=== PATIENT | male | born 1960 | race Caucasian/White ===

== ENCOUNTER 2024-09-29 16:43 | Outpatient (CLI) | payer MEDICARE, OTHER, SELFPAY | END 2024-09-29 16:44 | disposition home or self-care (01) | PROVIDERS: Visit Provider Family Medicine | DX: R41.82 Altered mental status, unspecified (principal); F10.129 Alcohol abuse with intoxication, unspecified | CPT/HCPCS: A0425; A0427 ==

== ENCOUNTER 2025-01-22 19:30 | Outpatient (CLI) | payer MEDICARE, OTHER, SELFPAY | END 2025-01-22 19:31 | disposition home or self-care (01) | LOC: AMB 01-27 18:13 | PROVIDERS: Visit Provider Emergency Medicine | DX: F10.239 Alcohol dependence with withdrawal, unspecified (principal); R11.10 Vomiting, unspecified | CPT/HCPCS: A0425; A0427 ==

== ENCOUNTER 2025-01-22 20:08 | Inpatient (IN) | payer MEDICARE, OTHER, SELFPAY ==
--- OUTSIDE RECORDS SUMMARY | 2022-02-15 05:58 | XMS_ITS | Continuity of Care Document ---
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 Phone Unavailable Unavailable Unavailable Allergies, Adverse Reactions, Alerts Substance Reaction Status Criticality MEPERIDINE HCL Dizziness Active No Informatio n Medications Medication Instructions Dosage Effective Dates (start - stop) Status Comments hydrochlorothiazide 25 mg tablet take 1 tablet by oral route every day 25 MG - Active pantoprazole 40 mg tablet,delayed release take 1 tablet by oral route every morning 40 MG - Active Eliquis 5 mg tablet take 1 tablet by oral route 2 times every day 5 MG - Active METOPROLOL TARTRATE (unknown strength) take 1 tablet by ORAL route 2 times every day Not Available - Active flecainide 100 mg tablet take 1 tablet b y oral route 2 times every hour 100 MG - Active Procedures Procedure Date Small Bowel PillCam Small Bowel PillCam Capsule 1st Day Colonoscopy Flex; W/remov Les- Ugi Endo; W/bx 1/mx Level Iv-surg Path Gross/micro Colonoscopy Flex; W/remov Les- Level Iv-surg Path Gross/micro Colonoscopy Flex; Dx (sep Pro) 11 Advance Directives Directive Yes / No Effective Date File Name No Information Encounters Encounter Description Practice Location Reason(s) For Visit Diagnoses Date Provider Providers Copied on Encounter [facility], [address] [address], [place], [id number], [place] tel:[phone] [facility] No Information 2 No Information Referring Provider: Elan Leonardo, [address], [place], [address]. tel:[phone] [facility], [address] [address], [place], [id number], [place] tel:[phone] [facility] Iron deficiency anemia, unspecified 2 Fredy Bolton. [facility], [address], [id number], [place]. tel:[phone] Referring Provider: Yesy Turner, [address] [place] [address], [address]. tel:[phone] [facility], [address] [address], [place], [id number], [place] tel:[phone] [facility] GI Symptoms or Concerns (chief complaint) Hiatal herniaIron deficiency anemia, unspecified iron deficiency anemia typeColorectal polypsDivertic ulosis of colon without diverticulitis Iron deficiency anemia, unspecifiedPer aimee history of colonic polypsBenign neoplasm of sigmoid colonIron deficiency anemia, unspecifiedDia phragmatic hernia without obstruction or gangreneBenign neoplasm of sigmoid colon 2 Fredy Bolton. [address] [facility], [facility] [address], [place], [id number], [place]. tel:[phone] Referring Provider: Elan Leonardo, [address], [place], [address]. tel:[phone] [facility], [address] [address], [place], [id number], [place] tel:[phone] [facility] No Information 2 Fredy Bolton. [address] [facility], [facility] [address], [place], [id number], [place]. tel:[phone] [facility], [address] [address], [place], [place], [id number], [place] tel:[phone] [facility] Colorectal polypsDivertic ulosis of colonEncounter for screening for malignant neoplasm of colonBenign neoplasm of sigmoid colonEncounter for screening for malignant neoplasm of colonDvrtclos of lg int w/o perforation or abscess w/o bleedingBenign neoplasm of sigmoid colon 0 9 Domingo Barry. [address] [facility] [address], [place], [id number], [place]. tel:[phone] Referring Provider: Yesy Turner, [address] [place] [address], [address]. tel:[phone] [facility], [address] [address], [place], [place], [id number], [place] tel:[phone] [facility] Colon Cancer ScreeningDiver ticulosis Of Colon 1 Tequila Harry. [address] [facility], [facility] [address], [place], [id number], [place]. tel:[phone] Referring Provider: Yesy Turner, [address] [place] [address], [address]. tel:[phone] Family History Family Member Type Diagnosis Age At Onset Mother Problem (finding) Alive and well Father Problem (finding) Son Problem (finding) Alive and well Brother Problem (finding) Alive and well Father Problem (finding) Alcoholism Sister Problem (finding) Alive and well Immunizations Vaccine Date Status Comments SARS-COV-2 (COVID-19) vaccin e, mRNA, spike protein, LNP, preservative free, 30 mcg/0.3mL dose administered Note: [facility] bi-direct ional interface ; Source: Other Registry SARS-COV-2 (COVID-19) vaccin e, mRNA, spike protein, LNP, preservative free, 30 mcg/0.3mL dose administered Note: [facility] bi-direct ional interface ; Source: Other Registry tetanus toxoid, reduced diphtheria toxoid, and acellular pertussis vaccine, adsorbed administered Note: [facility] b i-directional interface ; Source: Other Registry Afluria Qd administered Note: [facility] bi-directional interface ; Source: Other Registry Afluria Qd administered Note: [facility] bi-directional interface ; Source: Other Registry tetanus toxoid, reduced diphtheria toxoid, and acellular pertussis vaccine, adsorbed administered Note: [facility] b i-directional interface ; Source: Other Registry Influenza, seasonal, injectable administe red Note: [facility] bi- directional interface ; Source: Other Registry Payers Payer name Insurance type Covered green party ID Authoriza tion(s) No Information Social History Type Description Quantity Date Captured Comments Alcohol Use Details Unknown Caffeine Use Details Unknown Tobacco Use Status No Information Smoking Status No Information Sex Male Chief Complaint And Reason For Visit No Information Reason For Referral Reason For Referral No Information Plan Of Treatment Date Type Action Status Referral Ordered: Small Bowel PillCam Appointment date/timeframe: First Available ordered History Of Present Illness Encounter Date Complaint History Of Prese nt Illness GI Symptoms or Concerns Functional Status Date Functional Assessmen t No Information Instructions Date Instruction Additional Infor mation Hiatal Hernia Related to Hiata l hernia Colon Cancer Prevention Related to Hiatal hernia Colon Polyps Related to Hiata l hernia Diverticulosis/Diverticulitis Re lated to Hiatal hernia high fiber diet Related to Hiata l hernia Diverticulosis/Diverticulitis Re lated to Colorectal polyps Colon Polyps Related to Color ectal polyps Colon Cancer Prevention Related to Colorectal polyps High Fiber Diet Related to Color ectal polyps Assessments Type Assessment Date No Information Patient Care Teams Name Effective Dates (start - stop) Status Members No Information
--- OUTSIDE RECORDS SUMMARY | 2022-02-15 05:58 | XMS_ITS | Continuity of Care Document ---
Author Organization [facility] Address [address] [address] [place] [address] Phone Care Team Providers Care Manager Adult Name Role Phone Unavailable Unavailable Unavailable Allergies, [...] Diagnoses Date Provider Providers Copied on Encounter [facility], [address] [address], [place], [id number], [place] tel:[phone] [facility] No Information 2 No Information Referring Provider: Elan Leonardo, [address], [place], [address]. tel:[phone] [facility], [address] [address], [place], [id number], [place] tel:[phone] [facility] Iron deficiency anemia, unspecified 2 Fredy Bolton. [facility], [address], [id number], [place]. tel:[phone] Referring Provider: Yesy Turner, [address] [place] [address], [address]. tel:[phone] [facility], [address] [address], [place], [id number], [place] tel:[phone] [facility] GI Symptoms or Concerns (chief complaint) Hiatal herniaIron deficiency anemia, unspecified iron deficiency anemia typeColorectal polypsDivertic ulosis of colon without diverticulitis Iron deficiency anemia, unspecifiedPer aimee history of colonic polypsBenign neoplasm of sigmoid colonIron deficiency anemia, unspecifiedDia phragmatic hernia without obstruction or gangreneBenign neoplasm of sigmoid colon 2 Fredy Bolton. [address] [facility], [facility] [address], [place], [id number], [place]. tel:[phone] Referring Provider: Elan Leonardo, [address], [place], [address]. tel:[phone] [facility], [address] [address], [place], [id number], [place] tel:[phone] [facility] No Information 2 Fredy Bolton. [address] [facility], [facility] [address], [place], [id number], [place]. tel:[phone] [facility], [address] [address], [place], [place], [id number], [place] tel:[phone] [facility] Colorectal polypsDivertic ulosis of colonEncounter for screening for malignant neoplasm of colonBenign neoplasm of sigmoid colonEncounter for screening for malignant neoplasm of colonDvrtclos of lg int w/o perforation or abscess w/o bleedingBenign neoplasm of sigmoid colon 0 9 Domingo Barry. [address] [facility] [address], [place], [id number], [place]. tel:[phone] Referring Provider: Yesy Turner, [address] [place] [address], [address]. tel:[phone] [facility], [address] [address], [place], [place], [id number], [place] tel:[phone] [facility] Colon Cancer ScreeningDiver ticulosis Of Colon 1 Tequila Harry. [address] [facility], [facility] [address], [place], [id number], [place]. tel:[phone] Referring Provider: Yesy Turner, [address] [place] [address], [address]. tel:[phone] Family History Family Member Type Diagnosis Age [...]
[2025-01-22] VITALS (23 sets, daily range): BP systolic 103–141; BP diastolic 74–123; PULSE 103–138; RESP 17–37; TEMP 36.9–37.2; O2SAT 86–98; BMI 32.5
--- NOTE | 2025-01-22 20:10 | ED.GENADULT ---
HPI - General Adult General Date Seen: 01/22/25 Chief complaint: Alcohol/Intoxication Stated complaint: alcohol withdraw Time Seen by Provider: 01/22/25 20:10 History of Present Illness HPI narrative: 64-year-old male brought to the ER today by EMS from his home, near [facility]. His family called 911 for him with concern for alcohol withdrawal. He does not really know his past medical history but he does have a history atrial fibrillation. He knows that he is on flecainide and Eliquis. He confirms that he has been taking his prescription meds today and lately and has missed any recent doses. He does not really know his other medical history. He is able to tell me that he has been drinking heavily, a 5th of whiskey, every day for least a month. He is not sure why he relapse. He has been through alcohol treatment for 5 times in the past. He has never had any serious withdrawal before, he says. Most recent treatment was at [facility] in [place] a couple of years ago. His last drink was yesterday evening around 8 or 9:00 p.m.. When he woke up this morning he decided that he would need to quit drinking so he has not had any alcohol today. Through the morning and afternoon he has felt worse with nausea, shakiness, tremor, anxiety, headache. He vomited once. His reported a paramedics that his emesis was black. He denies any other vomiting. No black or bloody stools lately. Patient denies any pain. No chest pain. No abdominal pain. No back pain. No headache. He has a history of paroxysmal AFib in usually can feel when he is in AFib. On his monitor today we do see that he is in atrial fibrillation and flutter with rapid ventricular response. He is not having any of his typical palpitations. He is not sure when he would have gone into it. Paramedics report report that he was quite nauseous and anxious. They gave him IM droperidol because he was very difficult to get IV on. He had dystonia from that. They were subsequently lose dilation IV in the give him some Benadryl. Blood pressure was hypertensive when paramedics 1st arrived but is now down to about 135/80. He remains tachycardic with heart rate in the 130s-150s. He is tremulous. History from [facility] care link includes: Hypertension aortic root dilatation Paroxysmal AFib Hypertriglyceridemia Obesity Umbilical hernia right inguinal hernia Hiatal hernia Hepatic steatosis Esophageal ulcers with bleeding Alcohol abuse Anxiety disorder Erectile dysfunction Medication list from [facility] link includes: Acetaminophen Apixaban Vitamin-C Ferrous sulfate flecainide 100 mg q.12 hours [id number] mg daily metoprolol succinate 25 mg daily Multivitamin Protonix 40 mg daily Sildenafil Related Data Home Medications ?Medication ?Instructions ?Recorded ?Confirmed apixaban 5 mg tablet (Eliquis) 5 mg PO BID 01/22/25 01/22/25 flecainide 100 mg tablet 100 mg PO Q12H 01/22/25 01/22/25 hydrochlorothiazide 25 mg tablet 25 mg PO DAILY 01/22/25 01/22/25 metoprolol succinate 25 mg 12.5 mg PO DAILY 01/22/25 01/22/25 tablet,extended release 24 hr pantoprazole 40 mg tablet,delayed 40 mg PO DAILY 01/22/25 01/22/25 release Allergies Allergy/AdvReac Type Severity Reaction Status Date / Time meperidine Allergy Unknown Verified 01/22/25 22:12 [facility] Medical History (Updated 01/22/25 @ 22:56 by Ray Elliott MD) Obesity (BMI 30.0-34.9) ?E66.811 - Obesity, class 1 (ICD-10) Esophageal ulcer ?K22.10 - Ulcer of esophagus without bleeding (ICD-10) Tubular adenoma ?D36.9 - Benign neoplasm, unspecified site (ICD-10) Iron deficiency anemia ?D50.9 - Iron deficiency anemia, unspecified (ICD-10) Thrombocytopenia ?D69.6 - Thrombocytopenia, unspecified (ICD-10) Alcoholic steatohepatitis ?K70.10 - Alcoholic hepatitis without ascites (ICD-10) Alcohol use disorder ?F10.90 - Alcohol use, unspecified, uncomplicated (ICD-10) Surgical History (Updated 01/22/25 @ 22:50 by Ray Elliott MD) History of esophagogastroduodenoscopy (EGD) ?Z98.890 - Other specified postprocedural states (ICD-10) History of colonoscopy ?Z98.890 - Other specified postprocedural states (ICD-10) History of umbilical hernia repair ?Z98.890 - Other specified postprocedural states (ICD-10) ?Z87.19 - Personal history of other diseases of the digestive system (ICD-10) History of inguinal hernia repair ?Z98.890 - Other specified postprocedural states (ICD-10) ?Z87.19 - Personal history of other diseases of the digestive system (ICD-10) Family History (Updated 01/22/25 @ 22:50 by Ray Elliott MD) Father Alcohol dependence Social History (Updated 01/22/25 @ 22:52 by Ray Elliott MD) Narrative: He lives with his and son in [place]. His , Carin, is healthcare power of commercial real estate attorney. Code status is full. 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 He drinks alcohol fairly heavily, a 5th of whiskey per day, he is a former smoker Smoking Status: Former smoker Do you use any of these nicotine containing products: None How often do you have a drink containing alcohol: 4 or more times a week How many standard drinks containing alcohol do you have on a typical day: 10 or more How often do you have six or more drinks on one occasion: Daily or almost daily AUDIT-C Alcohol total score: 12 Non-prescribed substance use: denies use Exam Narrative: Exam Narrative: Constitutional: Appears well-developed and well-nourished. Alert. He is quite tremulous but is able to answer simple questions. Not able to provide full details of his history. He can not remember all of his medical problems or his med list. He is quite tremulous. HENT: Head: Atraumatic. Nose: Nose normal. Mouth/Throat: Oral mucosa is clear but mucous membranes are dry. no trismus. Pharynx normal. Tonsils symmetric. No tonsillar enlargement, erythema, or exudate. Eyes: Conjunctivae normal. EOM normal. Pupils equal, round, and reactive to light. No scleral icterus. Neck: Normal range of motion. Neck supple. No tracheal deviation present. No JVD Cardiovascular: Tachycardic and irregularly rhythm. No gallop. No friction rub. No murmur heard. Symmetric radial artery pulses Pulmonary/Chest: Effort normal. No stridor. No respiratory distress. No wheezes. No rales. No rhonchi . No tenderness. Abdominal: Soft. Bowel sounds normal. No distension. No mass. No HSM. No tenderness. No rebound. No guarding. Musculoskeletal: RUE: Normal range of motion. No tenderness. No deformity LUE: Normal range of motion. No tenderness. No deformity RLE: Normal range of motion. No edema. No tenderness. No deformity LLE: Normal range of motion. No edema. No tenderness. No deformity Neurological: Alert and oriented to person, place, and time. Normal strength. CN II-VII intact. No sensory deficit. GCS eye subscore is 4. GCS verbal subscore is 5. GCS motor subscore is 6. Normal coordination Skin: Skin is warm and dry. No rash noted. No pallor. Normal capillary refill. Psychiatric: Endorses heavy alcohol use every day for about a month or so. Decided need to quit drinking today so last drink was about 24 hours ago, 8 or 9:00 p.m. last night. He is having tremor, headache, nausea, vomiting, anxiety. No supported seizures. No hallucinations. Const: Vital Signs, click to edit/add: Vital Signs - 24 hr 01/22/25 20:14 01/22/25 20:20 01/22/25 20:29 Temperature 99 F 99 F Pulse Rate Pulse Rate [Pulse Oximeter] 133 H 126 H Respiratory Rate 20 31 H 18 Blood Pressure Blood Pressure [Le ft Arm] 103/74 Blood Pressure [Ri ght Upper Arm] 135/88 Pulse Oximetry 92 94 92 Oxygen Delivery Me thod Room Air Nasal Cannula Oxygen Flow Rate 2 01/22/25 20:30 01/22/25 20:31 01/22/25 20:32 Temperature Pulse Rate 116 H 120 H 123 H Pulse Rate [Pulse Oximeter] Respiratory Rate 33 H 36 H 28 H Blood Pressure 115/81 116/87 Blood Pressure [Le ft Arm] Blood Pressure [Ri ght Upper Arm] Pulse Oximetry 94 91 91 Oxygen Delivery Me thod Oxygen Flow Rate 01/22/25 20:45 01/22/25 20:47 01/22/25 20:56 Temperature Pulse Rate 123 H 114 H Pulse Rate [Pulse Oximeter] Respiratory Rate 25 H 35 H 29 H Blood Pressure 119/84 103/74 Blood Pressure [Le ft Arm] Blood Pressure [Ri ght Upper Arm] Pulse Oximetry 92 86 L 93 Oxygen Delivery Me thod Nasal Cannula Oxygen Flow Rate 2 01/22/25 21:00 01/22/25 21:02 01/22/25 21:03 Temperature Pulse Rate 110 H 112 H 113 H Pulse Rate [Pulse Oximeter] Respiratory Rate 32 H 37 H 34 H Blood Pressure 111/74 Blood Pressure [Le ft Arm] Blood Pressure [Ri ght Upper Arm] Pulse Oximetry 91 93 92 Oxygen Delivery Me thod Nasal Cannula Nasal Cannula Oxygen Flow Rate 2 2 01/22/25 21:12 01/22/25 21:15 01/22/25 21:17 Temperature Pulse Rate 116 H 109 H Pulse Rate [Pulse Oximeter] Respiratory Rate 28 H 21 Blood Pressure 125/87 Blood Pressure [Le ft Arm] Blood Pressure [Ri ght Upper Arm] Pulse Oximetry 94 95 94 Oxygen Delivery Me thod Nasal Cannula Oxygen Flow Rate 2 01/22/25 21:30 01/22/25 21:32 01/22/25 21:45 Temperature Pulse Rate 104 H 111 H 117 H Pulse Rate [Pulse Oximeter] Respiratory Rate 29 H 29 H 25 H Blood Pressure 117/77 Blood Pressure [Le ft Arm] Blood Pressure [Ri ght Upper Arm] Pulse Oximetry 95 95 96 Oxygen Delivery Me thod Oxygen Flow Rate 01/22/25 22:00 01/22/25 22:02 01/22/25 22:15 Temperature Pulse Rate 118 H 123 H 131 H Pulse Rate [Pulse Oximeter] Respiratory Rate 23 21 17 Blood Pressure 119/82 Blood Pressure [Le ft Arm] Blood Pressure [Ri ght Upper Arm] Pulse Oximetry 98 96 95 Oxygen Delivery Me thod Oxygen Flow Rate Course Course ED Course: Recheck-lactic acid came back elevated at 5.1. At this point I suspect it is probably due to dehydration and alcohol withdrawal rather than sepsis. Could also be type B lactic acidosis from hepatic insufficiency. However we will order a 30 mL/kg bolus of fluids (patient weighs approximately 100 kg so 3000 mL) , blood cultures, and will give a single dose of empiric antibiotics for potential sepsis. Recheck -930. Patient is alert. field technical support consultant present at the side drawing blood for blood cultures. Patient's tremor is dramatically reduced compared to arrival. Heart rate down but still in AFib ranging about 110 up to 130. Nurses have reported that he was quite drowsy after 10 mg of Valium but with me he is able to be alert and conversant. Good cap refill. I note that his repeat vitals had indicate rib tachypnea with a respiratory rate of 37 but by my count now is respiratory rate is 25. He is denying any chest pain or shortness of breath. He is not hypoxic Recheck -930 1. Labs came back with hypokalemia potassium of 2.6 and hypo magnesemia, magnesium is 0.8. Will replete electrolytes. Recheck-discussed with our hospitalist, Dr. Elliott at about 945 and he graciously agreed to admit this patient to critical care for further treatment of his electrolyte imbalances, alcohol withdrawal, AFib with RVR. Sepsis bundle Repeat assessment for perfusion Date exam performed: 01/22 Time exam performed: 2199 Focused Exam: I have reassessed tissue perfusion after bolus given. Skin is pink, warm, well perfused. Mental status is normal. Heart rate remains tachycardic but is improved from the 130-160 range down to about 110-130. Still AFib with RVR. Current stage of sepsis: Sepsis very unlikely. Suspected due to dehydration and alcohol withdrawal . Vital Signs Vital signs: Initial Vital Signs Temperature 99 F 01/22/25 20:14 Temperature Source Temporal Artery Scan 01/22/25 20:14 Pulse Rate 133 H 01/22/25 20:14 Respiratory Rate 20 01/22/25 20:14 Blood Pressure 135/88 01/22/25 20:14 Blood Pressure Mean 103 01/22/25 20:14 Blood Pressure Position Semi-Fowlers 01/22/25 20:14 Pulse Oximetry 92 01/22/25 20:14 Oxygen Delivery Method Room Air 01/22/25 20:14 Vital Signs Temperature 99 F 01/22/25 20:14 Pulse Rate 133 H 01/22/25 20:14 Respiratory Rate 20 01/22/25 20:14 Blood Pressure 135/88 01/22/25 20:14 Pulse Oximetry 92 01/22/25 20:14 Oxygen Delivery Method Room Air 01/22/25 20:14 Temperature 99 F 01/22/25 20:29 Pulse Rate 131 H 01/22/25 22:15 Respiratory Rate 17 01/22/25 22:15 Blood Pressure 119/82 01/22/25 22:02 Pulse Oximetry 95 01/22/25 22:15 Oxygen Delivery Method Nasal Cannula 01/22/25 21:12 Oxygen Flow Rate 2 01/22/25 21:12 Medications Administered Medications: Generic Name Dose Route Start Last Admin Trade Name Robertq PRN Reason Stop Dose Admin Magnesium Sulfate 2 gm in 50 mls @ 25 mls/hr 01/22/25 22:49 01/22/25 23:08 Magnesium Iv IVPB 01/23/25 00:48 25 mls/hr ONCE ONE Administration Metoprolol Succinate 25 mg 01/22/25 22:49 01/22/25 23:11 Metoprolol Succinate (Xl) 25 Mg Tab PO 25 mg BID FRANCESAC Administration Sodium Chloride 250 ml 01/22/25 23:15 01/22/25 23:10 0.9 % Sodium Chloride 250 Ml IV 250 ml Q24H FRANCESCA Administration Thiamine HCl 100 mg 01/22/25 22:49 01/22/25 23:12 Thiamine 100 Mg Tablet PO 01/24/25 22:50 100 mg Q24H FRANCESCA Administration Discontinued Medications Generic Name Dose Route Start Last Admin Trade Name Robertq PRN Reason Stop Dose Admin Diazepam 20 mg 01/22/25 20:28 01/22/25 21:10 Diazepam 5 Mg/Ml Inj IV 01/22/25 20:29 10 mg ONCE ONE Administration Sodium Chloride 1,000 mls @ 1,000 mls/hr 01/22/25 20:30 01/22/25 21:46 0.9 % Sodium Chloride 1000 Ml IV 01/22/25 21:29 Infused .Q1H FRANCESCA Infusion Phenobarbital 260 mg/ Sodium 104 mls @ 208 mls/hr 01/22/25 20:28 01/22/25 21:41 Chloride IVPB 01/22/25 20:29 Infused ONCE ONE Infusion Lactated Ringer's 1,000 mls @ 1,000 mls/hr 01/22/25 21:05 01/22/25 22:07 Lactated Ringers 1000 Ml IV 01/22/25 22:04 Infused .Q1H ONE Infusion Sodium Chloride 1,000 mls @ 1,000 mls/hr 01/22/25 21:15 01/22/25 21:50 0.9 % Sodium Chloride 1000 Ml IV 01/22/25 22:14 1,000 mls/hr .Q1H FRANCESCA Administration Piperacillin Sod/Tazobactam 100 mls @ 200 mls/hr 01/22/25 21:09 01/22/25 22:38 Sod 4.5 gm/ Sodium Chloride IVPB 01/22/25 21:10 Infused ONCE ONE Infusion Potassium Chloride 10 meq in 100 mls @ 100 mls/hr 01/22/25 21:31 01/22/25 23:32 Potassium Chloride IVPB 01/22/25 22:30 Infused ONCE ONE Infusion Magnesium Sulfate 2 gm in 50 mls @ 150 mls/hr 01/22/25 21:32 01/22/25 22:38 Magnesium Iv IVPB 01/22/25 21:51 Infused ONCE ONE Infusion Phenobarbital 260 mg/ Sodium 104 mls @ 208 mls/hr 01/22/25 22:49 01/22/25 23:16 Chloride IVPB 01/22/25 22:50 208 mls/hr ONCE ONE Administration Metoprolol Tartrate 5 mg 01/22/25 22:49 01/22/25 23:08 Metoprolol Tartrate 1 Mg/Ml Inj IVP 01/22/25 22:50 5 mg ONCE ONE Administration Potassium Bicarbonate 25 meq 01/22/25 21:31 01/22/25 22:06 Potassium Bicarb 25 Meq Effervescent Tab PO 01/22/25 21:32 25 meq ONCE ONE Administration Potassium Bicarbonate 50 meq 01/22/25 22:49 01/22/25 23:13 Potassium Bicarb 25 Meq Effervescent Tab PO 01/22/25 22:50 50 meq ONCE ONE Administration Medical Decision Making [facility] Narrative Medical decision making narrative: Renal/electrolytes-BMP shows sodium low at 122. Most recent sodium was September 29 and at that time was 140. Id-patient does not have a fever. No clear infection going on here. White count normal. However lactic acid came back elevated at 5.3 which is concerning, if there is an infection, for Sepsis . I did order blood cultures and empiric dose of antibiotics as well as a 30 mL/kilogram bolus of some crystalloid. Subsequent lactate came back improved down to 3.1. Further monitoring will be continued in the critical care unit. Psych-patient endorses history of alcoholism for many years. Has been through treatment for 5 times. Denies any suicide attempt. Alcohol level undetectable. Salicylate and acetaminophen undetectable. Will need substance abuse and alcohol treatment once patient is medically stable for discharge after alcohol withdrawal. Drug screen is positive for barbiturates it is because he was given phenobarbital as part of his treatment for alcohol withdrawal. Heme-hemoglobin normal. Platelet count is low at 1:03 a.m.. Per [facility] records he did have a CBC in September 2024. At that time white count was 5.3, hemoglobin is 14 4, and platelet count was 186. Thrombocytopenia is new. Renal/electrolytes. BMP shows hyponatremia with a sodium of 125. This is new compared to September. He also has hypokalemia with potassium of 2.6 and hypomagnesemia with a magnesium level of 0.8. Electrolytes are repleting here in the ER with crystalloid boluses, oral and IV potassium, IV magnesium. Liver-patient has abnormal LFTs. 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 Cardiac-patient has a history of paroxysmal AFib. He does have AFib/flutter with rapid ventricular response and initial heart rates ranging in the 130-60 region. At this point we suspect that his tachycardia is likely secondary to dehydration and alcohol withdrawal. Initial treatment is to rehydrate him manage alcohol withdrawal. Will add rate control agents if needed. At this point this is not an ?unstable? tachycardia requiring immediate cardioversion. Patient reports that he has been therapeutic with his Eliquis, even through all of his drinking. Therefore if cardioversion were to become necessary, he would be expected to be low risk for stroke. The patient actually denies any chest pain, palpitations, shortness of breath, or other symptoms directly attributable to his AFib. Pulmonary-patient denies any recent cough or shortness of breath. He did become hypoxic and was pushed on nasal cannula after receiving benzos. Suspect this is a medication side effect as part of his treatment for alcohol withdrawal. Lab Data Labs: Lab Results 01/22/25 01/22/25 01/22/25 Range/Units 20:29 21:45 22:05 WBC 5.14 (4.50-11.00) K/uL RBC 4.40 (4.30-5.90) m/uL Hgb 13.5 (13.5-17.5) gm/dL Hct 37.4 (37.0-53.0) % MCV 85 (80-100) fL MCH 31 (26-34) pg MCHC 36 (32-36) gm/dL RDW Coeff of [place] 15.6 H (11.5-15.5) % Plt Count 103 L (140-440) K/uL Neut % (Auto) 89.1 H (42.0-72.0) % Lymph % (Auto) 5.6 L (20-44) % [place] % (Auto) 4.3 (0.0-11.0) % Eos % (Auto) 0.0 (0.0-7.0) % Baso % (Auto) 0.6 (0.0-3.0) % Neut # (Auto) 4.60 (1.7-7.0) K/uL Lymph # (Auto) 0.30 L (0.90-2.90) K/uL [place] # (Auto) 0.20 (0.00-0.90) K/UL Eos # (Auto) 0.00 (0.00-0.50) K/uL Baso # (Auto) 0.03 (0.00-0.30) K/uL Abs Immat Gran (auto) 0.02 (0.00-0.30) K/uL Imm/Tot Granulo (auto) 0.4 % Sodium 122 L* 125 L (135-149) mmol/L Potassium 2.6 L* (3.6-5.1) mmol/L Chloride 85 L (96-114) mmol/L Carbon Dioxide 22 (20-32) mmol/L Anion Gap 15 (7-15) mEq/L BUN 10 (7-30) mg/dL Creatinine 0.9 (0.5-1.5) mg/dL Estimated Creat Clear 73.65 Estimated GFR 95 ml/min Glucose 134 H (60-115) mg/dL Lactate 5.3 H* 3.1 H (0.5-1.9) mmol/L Calcium 7.4 L (8.4-10.6) mg/dL Magnesium 0.8 L* (1.5-2.6) mg/dL Total Bilirubin 2.5 H (0.1-1.5) mg/dL AST 86 H (12-35) U/L ALT 43 (4-50) U/L Alkaline Phosphatase 107 (40-150) U/L Total Protein 6.7 (6.0-8.3) g/dL Albumin 3.5 (3.3-5.0) g/dL Lipase 298 (23-300) U/L Urine Color Yellow (Yellow) Urine Appearance Clear (Clear) Urine pH 6.5 (5.0-8.5) Ur Specific [place] 1.015 (1.000-1.030) Urine Protein 2+ A (Negative) Urine Glucose (UA) Negative (Negative) Urine Ketones 1+ A (Negative) Urine Blood Trace-intact A (Negative) Urine Nitrite Negative (Negative) Urine Bilirubin Negative (Negative) Urine Urobilinogen 1.0 (0.2-1.0) Ur Leukocyte Esterase Negative (Negative) Urine RBC 0-2 (0-2) Urine WBC 0-2 (0-5) Ur Squamous Epith Cells None (None-Few) Urine Bacteria None (None) Salicylates < 1.0 L (1.0-10) mg/dL Urine Opiates Screen Negative (Negative) Ur Oxycodone Screen Negative (Negative) Urine Methadone Screen Negative (Negative) Acetaminophen < 10.0 (10.0-30.0) ug/mL Ur Barbiturates Screen POSITIVE A (Negative) U Tricyclic Antidepress Negative (Negative) Ur Phencyclidine Scrn Negative (Negative) Ur Amphetamines Screen Negative (Negative) U Methamphetamines Scrn Negative (Negative) U Benzodiazepines Scrn Negative (Negative) Urine Cocaine Screen Negative (Negative) U Marijuana (THC) Screen Negative (Negative) Ur Drug Screen Comment See Note Ethyl Alcohol < 0.01 (0.01-0.03) % ECG Data Attestation: I personally reviewed and interpreted this ECG as follows: Interpretation: Atrial fibrillation with rapid ventricular response Heart rate 131 MN interval not measurable Normal QRS axis. No ST segment elevation or depression. Nonspecific T-wave changes. QT 326, QTC 481 Discharge Plan Discharge Clinical Impression: Alcohol withdrawal syndrome, Atrial fibrillation with RVR, Acute hyponatremia, Hypokalemia, Hypomagnesemia Patient Disposition: Admitted As Inpatient
--- OUTSIDE RECORDS SUMMARY | 2025-01-22 20:11 | XMS_ITS | Clinical Summary ---
Author Organization [facility] Address [address] [place] [address] Care Team Providers Care Veterans' Counselor Name Role Phone Elan Perez MD Primary Care Provider [phone] Allergies Active Allergy Reactions Criticality Noted Date Comments Meperidine Dizziness,Hallucinations Low 05/23/2010 Medications MULTIVITAMIN TAB take 1 tablet by oral route once daily with food 30 0 07/01/19 09 Active ascorbic acid (VITAMIN C) 1,000 mg tablet Take 1 tablet by mouth once daily. 0 07/03/19 12 Active miscellaneous medical supply (BLOOD PRESSURE CUFF) miscIndications: Elevated blood pressure As directed. 1 Units 0 12/12/19 16 Active acetaminophen (TYLENOL) 325 mg tablet Take by mouth every 4 hours if needed. Max acetaminophen dose: 4000mg in 24 hrs. 30 tablet Active flecainide (TAMBOCOR) 100 mg tabletIndication s:Persistent atrial fibrillation (HC) Take 1 Tablet (100 mg) by mouth every 12 hours. And keep upcoming cardiology appt in February. 180 Tablet 3 02/25/20 24 Active apixaban (ELIQUIS) 5 mg tabletIndication s:Anticoagulatio n monitoring, INR range 2-3,Atrial fibrillation, unspecified type (HC) Take 1 Tablet (5 mg) by mouth two times daily. And keep cardiology appt in February 2024. 180 Tablet 3 02/25/20 24 Active metoprolol succinate (TOPROL XL) 25 mg Sustained-Releas e tabletIndication s:Paroxysmal A-fib (HC) Take 0.5 Tablets (12.5 mg) by mouth once daily. Due for cardiology follow up. Please call [phone] to schedule. Last refill. 45 Tablet 3 02/25/20 24 Active ferrous sulfate 325 mg delayed release tabletIndication s:Iron deficiency anemia, unspecified iron deficiency anemia type Take 1 Tablet (325 mg) by mouth once every other day. And recheck iron level, ferritin, in 2-6 months. 45 Tablet 1 03/13/20 24 Active pantoprazole (PROTONIX) 40 mg delayed-release tabletIndication s:Ulcer of esophagus with bleeding TAKE ONE TABLET BY MOUTH ONCE DAILY BEFORE A MEAL. 90 Tablet 10/13/19 25 Active hydroCHLOROthiaz [place] 25 mg tabletIndication s:HTN (hypertension) Take 1 Tablet (25 mg) by mouth once daily. Overdue for cardiology follow up. Please call [phone] to schedule to receive further refills. 90 Tablet 10/13/19 25 Active sildenafil citrate (VIAGRA) 100 mg tabletIndication s:Decreased libido,Erectile dysfunction of organic origin Take 1 Tablet (100 mg) by mouth once daily if needed for Erectile Dysfunction. Take 30min to 4 hours before sexual activity. Max 100mg/24hr. 10 Tablet 11/05/19 25 Active Active Problems Problem Noted Date Diagnosed Date Paroxysmal A-fib 02/24/2024 Overview (02/25/2024): Feb 2024. See cardiology consult. Cont same and f/u one year. Aortic root dilatation 07/20/2021 Overview (01/20/2024): July 2021. Echo 4.2 cm. Jan 2024. Echo 4.2 cm Iron deficiency anemia 07/01/2021 Overview (01/27/2022): Jan 2022. EGD normal, Colonoscopy with adenomas and hyperplastic polyps. Ulcer of esophagus with bleeding 07/01/2021 Alcohol abuse 04/10/2020 HTN (hypertension) 04/10/2020 Inguinal hernia, right 09/11/2018 Hiatal hernia - incidental finding on U/S 08/201809/11/2018 Colon adenoma 07/30/2018 Overview (02/24/2024): 2019. Colonoscopy with [facility], 3 adenomas. Recheck in 2021. 2021. One more adenoma. Recheck in 5 years. Anxiety disorder 01/05/2016 Erectile dysfunction of organic origin 5 Hypertriglyceridemia 06/09/2010 Overview (02/25/2024): Oct 2021. See cardiology consult. CT calcium score zero. Feb 2024. See cardiology consult. No need for statin. Umbilical hernia Obesity (BMI 30.0-34.9) Hepatic steatosis - incidental finding on U/S 2018 Resolved Problems Problem Noted Date Diagnosed Date Resolved Date Atrial fibrillation, unspecified type 10/24/2023 01/07/2024 Anticoagulation monitoring, INR range 2-3 10/24/2023 01/20/2024 Overview (01/07/2024): Oct 2021. See cardiology consult. RX for metoprolol changed/decreased. Cont anticoagulation. Cont with flecainide. Sinus bradycardia 07/01/2021 11/02/2021 Systemic inflammatory respon se syndrome (SIRS) due to non-infectious process without acute organ dysfunction 04/11/2020 02/24/2024 Acute hyponatremia 04/11/2020 GIB (gastrointestinal bleeding) 04/10/2020 04/26/2020 Acute blood loss anemia 04/10/2020 02/0 11/2020 Atrial fibrillation 04/10/2020 01/20/20 Overview (11/02/2021): June 2021. Extended holtor revealed 10% burden of paroxysmal Afib/flutter. No pauses. Oct 2021. See cardiology consult. RX for metoprolol changed/decreased. Cont anticoagulation. Cont with flecainide. Chronic anticoagulation 04/10/202012/17 Overview (11/02/2021): Oct 2021. See cardiology consult. RX for metoprolol changed/decreased. Cont anticoagulation. Cont with flecainide. Tubular adenoma of colon - next due 202107/25/2018 02/24/2024 Alcohol dependence in remission 01/05/2016 04/26/2020 Dysthymic disorder 01/18/2011 2 Other and unspecified alcoho l dependence, unspecified drinking behavior 01/18/2011 02/06/2012 Partner relationship problem 01/18/2011 02/06/2012 Diverticular disease of colon 08/02/2010 09/11/2018 Paroxysmal atrial fibrillation 07/03/2010 07/05/2010 Hyponatremia 05/27/2010 07/05/2010 Alcohol withdrawal syndrome 05/27/2010 07/05/2010 Alcohol abuse 05/24/2010 02/06/2012 Acute alcohol intoxication 05/24/2010 0 07/05/2010 High triglycerides 1 Recurrent sinusitis 09/12/19 19 Hypertension 07/05/2010 History of alcohol abuse Encounters Date Type Department Care Team Description 11/02/2024 Refill [facility] [address] [place] [address] Elan Perez MD Refill Request (Viagra) from Last 3 Months Immunizations Immunization Administration Dates Next Due COVID-19 vaccine ([employer] 30mcg/0.3mL) GERA Gamino 07/11/2020,06/20/2020 Influenza A (H1N1), Inactivated (Age >=3 Years) 12/30/2009 Influenza, IIV3 (Age >=3 years) 02/06/2012,02/15 Influenza, IIV4 12/23/2018,03/26/2016 Influenza, Inactivated IIV3 (Age 65+ Years) Preserv Free 02/24/2024 Pneumococcal Conj 20-valent (Prevnar 20) 024 Tdap 12/23/2018,06/30/2008 Family History Medical History Relation Name Comments Alcohol/Drug Father Diabetes Maternal Uncle Diabetes Other Mother Hypoglycemia Thyroid Disease Sister 2 1/2 sister Cancer Sister 3 Cervical Relation Name Status Comments Brother Alive healthy Father (Age 74) lung cance r Maternal Uncle Mother Alive Heart medicatio n, coumadin, depression Sister 1 Alive thyroid and cer vical cancer Sister 2 Sister 3 Son Alive 5 sons. all hea lthy Social History Tobacco Use Types Packs/Day Years Used Date Smoking Tobacco: Former Cigarettes Q uit: 12/06/2010 Smokeless Tobacco: Never Tobacco Cessation:Counseling Given: Not Answered Alcohol Use Standard Drinks/Week Comments Not Currently 0 (1 standard drink = 0.6 oz pur e alcohol) quit 2022 PHQ-2 Answer Date Recorded PHQ-2 TOTAL SCORE 0 02/24/2024 Social Connections Answer Date Recorded Do you often feel lonely or isolated from those around you? 0 03/13/2024 Financial Resource Strain Answer Date R ecorded Difficulty of Paying Living Expenses 3 10/17/2023 Difficulty of Paying Living Expenses Not on file 10/17/2023 Food Insecurity Answer Date Recorded Do you worry your food will run out before you are able to buy more? 1 03/13/2024 Transportation Needs Answer Date Record ed Does lack of transportation keep you from medica l appointments? 1 03/13/2024 Does lack of transportation keep you from work, meetings or getting things that you need? 1 03/13/2024 Housing Stability Answer Date Recorded What is your housing situation today? 1 03/13/2024 Interpersonal Safety Answer Date Record ed Are you being hit, kicked, p ushed or yelled at (see row info)? No 09/29/2024 Interpersonal Safety Abuse 12 - 18 Not on file 09/29/2024 Interpersonal Safety Ambulatory Vulnerability No t on file 09/29/2024 Utilities Answer Date Recorded Do you have trouble paying f or utilities (for example, heat, electricity, water, phone)? 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 Gender Identity Not on file Sexual Orientation Not on file Obstetrics History Last Filed Vital Signs Vital Sign Reading Time Taken Comments Blood Pressure 139/72 09/30/2024 7:55 AM CDT Pulse 97 09/30/2024 7:55 AM CDT Temperature 36.4 C (97.6 F) 09/30/2024 7:10 AM CDT Respiratory Rate 14 09/30/2024 7:55 AM CDT Oxygen Saturation 96% 09/30/2024 7:55 AM CDT Inhaled Oxygen Concentration - - Weight 99.8 kg (220 lb) 09/29/2024 5:47 PM CDT Height 172.7 cm (5' 8) 09/29/2024 5:47 PM CDT Body Mass Index 33.45 09/29/2024 5:47 PM CDT Plan of Treatment Health Maintenance Due Date Last Done Comments HIV for age 15-65 1974 Hepatitis C screening for age 18-79 1977 Zoster (shingles) series for age 50+ (1 of 2) 2009 RSV vaccine for adults or (1 - Risk 60-74 years 1-dose series) 2019 AAA screening age 65-74 02/03/2024 09/11/2018 Influenza Vaccine (#1) 2024 , 12/23/2018, 03/26/2016, Additional history exists BMI (ht and wt on same day) for age 18+ 02/24/2025 02/25/2024, 02/24/2024, 02/11/2024, Additional history exists Depression screening for age 12+ 02/24/2025 02/25/2024, 02/25/2024, 02/24/2024, Additional history exists Medicare Wellness for age 65+ 02/24/2025 02/24/2024 Colonoscopy through age 75 01/23/202701/23, 07/25/2018, 07/31/2010 Tetanus booster 12/23/2028 12/23/2018, 06/30/2008 Lipids for age 45-75 02/24/2029 02/25/2024, 10/31/2021, 06/30/2021, Additional history exists Pneumococcal series for age 50+ Completed 02/24/2024 Hepatitis B series for 19+ Aged Out N o longer eligible based on patient's age to complete this topic Medical Devices Implanted Type Area [employer] Packaging Machine Operator Device Identifier Shelf Expiration Date Model / Serial / Lot Mesh Inguinal Rt 4x6in 3-D Max - [id number] Implanted:Qty: 1 on 12/31/2018 by Sy Wan MD at [facility] Right: Inguinal [employer] 08/13/2023 [id number] / / [id number] Procedures Procedure Name Priority Date/Time Associated Diagnosis Comments LIPID PANEL W REFLEX MEASURED LDL Today 02/25/2024 9:40 AM [employer]ARD SPECIALIST Hypertriglyceridemi a SCAN-COLONOSCOPY 01/23/2022 2:[address] ABDOMEN PELVIS W Routine 09/11/2018 8 :15 AM CDT Inguinal pain, right from Last 3 Months or Most Recently Relevant to Health Maintenance Results * (ABNORMAL) LIPID PANEL W REFLEX MEASURED LDL (02/25/2024 9:40 AM YARD SPECIALIST) CHOLESTEROL,TOTAL 171 100 - 199 mg/dL 02/25/2024 10:15 AM YARD SPECIALIST [facility] Comment: Cholesterol, Total Reference Ranges Desirable <200 mg/dL Borderline 200-239 mg/dL High >=240 mg/dL TRIGLYCERIDES 263(H) <150 mg/dL 02/25/2024 10:15 AM YARD SPECIALIST [facility] HDL CHOLESTEROL 32(L) >40 mg/dL 10:15 AM YARD SPECIALIST [facility] NON-HDL CHOLESTEROL 139 <145 mg/dl 02/25/2024 10:15 AM YARD SPECIALIST [facility] CHOL/HDL RATIO 5.34(H) <4.50 02/25/2024 10:15 AM YARD SPECIALIST [facility] LDL CHOLESTEROL 86 <=130 mg/dL 02/25/2024 10:15 AM YARD SPECIALIST [facility] VLDL CHOLESTEROL 53(H) <=30 mg/dL 02/25/2024 10:15 AM [facility] PROVIDER ORDERED STATUS FASTING 02/25/2024 10:15 AM [facility] Blood BLOOD SPECIMEN / Unknown Venipuncture / Unknown 02/25/2024 9:40 AM YARD SPECIALIST 02/25/2024 9:43 AM YARD SPECIALIST us Elan Perez MD CHEMISTRY Final Result [facility] [address] [place] [address] * SCAN-COLONOSCOPY (01/23/2022 2:30 PM YARD SPECIALIST) Narrative Procedure Note Ham Daniel MD - 01/23/2022 1:54 PM CST [facility] [address], [address], [place] [address] Patient Name: Larry Lim Gender: Male Exam Date: 01/23/2022 Visit Number: [id number] Age: 61 Years Date of : 1960 Attending MD: Hoang Daniel MD Medical Record#: [id number] Procedure: Colonoscopy Indications: Previous adenomatous polyp(s) Iron deficiency anemia Referring MD: Elan Perez MD Primary MD: Elan Perez MD Medications: Admitting Medications: Lactated Ringers Intra Procedure Medications: Patient received monitored anesthesia care. Complications: No immediate complications Procedure: An examination of the heart and lungs was performed and found to be withinacceptable limits. . The patient was therefore deemed a reasonablecandidate for endoscopy and sedation. The risks and benefits of the procedure were explained to the patient.After obtaining informed consent, the patient received monitoredanesthesia care and I passed the scope without difficulty via the rectum to the ileum. The appendiceal orificeand ic valve were identified. The scope was retroflexed during theexamination The quality of the prep was excellent (Alok/Gat Split). This was a complete examination throughout the entire colon. Findings: Polyp location: sigmoid. Quantity: 2. Size: 4-5 mm. Polyp shape:sessile. Maneuver: polypectomy was performed with a cold snare. Removal: complete. Retrieval: complete. Bleeding: none. Polyp location: rectum. Quantity: 3. Size: 4-5 mm. Polyp shape:sessile. Maneuver: polypectomy was performed with a cold snare . Removal: complete. Retrieval: complete. Bleeding: none. All polyps in same jar. Diverticulosis. Location: - transverse colon. Size: large.Quantity: few. Impression: Colorectal polyps Diverticulosis of colon without diverticulitis Iron deficiency anemia, unspecified iron deficiency anemia type Preliminary Plan: The patient and their physician will receive a copy of the pathologyreport as well as pathology-based recommendations for future screening orsurveillance. Antiplatelets/Anticoagulants: Apixaban (Eliquis). Last dose: 3 days ago. Restart. Date: 01/24/2022 Recommendation Comments: High fiber diet. Procedure: Upper GI Endoscopy Indications: Ulcer, follow up, Esophageal Iron Deficiency Anemia Provider: Hoang Daniel MD Referring MD: Elan Perez MD Primary MD: Elan Perez MD Medications: Admitting Medication: Lactated Ringers Intra Procedure Medications: Patient received monitored anesthesia care. Complications: No immediate complications Procedure: An examination of the heart and lungs was performed within acceptablelimits. . The patient was therefore deemed a reasonable candidate forsedation. The risks and benefits were explained to the patient, who appeared tounderstand. After obtaining informed consent, the scope was passed underdirect vision. Throughout the procedure the patient's blood pressure,pulse and oxygen saturations were monitored. The scope was introducedthrough the mouth and advanced to the second portion of duodenum. Findings: Esophagus: Normal esophagus. The z-line is 41 centimeters from the incisors. Stomach: Normal Location: entire stomach Maneuver: biopsies were obtained cold biopsy forceps Small Hiatal Hernia. *Stomach Comments: No stricture seen. Duodenum: Normal duodenum. Celiac Sprue biopsies taken. Celiac Sprue biopsies taken. Impression: Hiatal hernia Iron deficiency anemia, unspecified iron deficiency anemia type Preliminary Plan: Antiplatelets/Anticoagulants: Apixaban (Eliquis). Last dose: 3 days ago. Restart. Date: 01/24/2022 Recommendation Comments: No reason for iron deficiency anemia seen. Ifbiopsies normal, would do small bowel pill camera study. Pathology Results: A: DUODENUM, BIOPSY: 1. Normal duodenal mucosa 2. Negative for celiac disease and other enteropathy B: STOMACH, BIOPSY: 1. Normal gastric body mucosa 2. Negative for Helicobacter C: COLON, SIGMOID AND RECTUM, POLYPS: 1. Tubular adenoma (1) and hyperplastic polyps (4) 2. Negative for high grade dysplasia 3. Per the colonoscopy report: a. Polyp sizes: 4 mm - 5 mm b. Resection: Complete c. Retrieval: Complete MICROSCOPIC A: Performed B: Performed C: Performed Electronically signed by: Golden Bonilla MD Interpreted at [facility], [address] [place], [place] [id number] Orders Office Procedures: Service Comments Timeframe Assessment Small Bowel PillCam First Available D50.9 Instruction(s)/Education: Instruction/Education Timeframe Assessment Colon Cancer Prevention K44.9 Colon Polyps K44.9 Diverticulosis/Diverticulitis K44.9 Hiatal Hernia K44.9 high fiber diet K44.9 Final Plan: Repeat colonoscopy in 5 years. We will attempt to contact you at appropriate intervals via U.S. mail. Wemay not be able to find you or contact you at that time, therefore youshould know that the responsibility for following our recommendation restswith you. If you don't hear from us at the time your procedure is due,please contact our office to schedule an appointment. If your contactinformation should change, please contact our office so that we can updateyour record. Additional Comments: Will schedule a small bowel pill camera study. _Electronically signed by: Hoang Daniel MD 01/23/2022 cc: Elan Perez MD cc: Elan Perez MD us Ham Daniel MD OTHER Final Resu lt * CT ABDOMEN PELVIS W (09/11/2018 8:15 AM CDT) Anatomical Region Laterality Modality Abdomen, Pelvis, AORTA, LIVER, SPLEEN Computed Tomography 09/11/2018 8:40 AM CDT Narrative 09/11/2018 8:40 AM CDT INDICATION: Groin pain on right side. Possible inguinal hernia. TECHNIQUE: CT abdomen and pelvis acquired with i.v. 100 mL Omnipaque 300. Coronal and sagittal reformats were obtained. Oral contrast: Water 24 ounces COMPARISON: None FINDINGS: Cardroom Drawing Runner CT images: Nonobstructive bowel gas pattern. Moderate to severe degenerative disc disease at L5-S1 with grade 1 anterolisthesis of L5 on S1. Lower chest: Imaged lung bases are clear. No pleural or pericardial effusions. Liver: Low-attenuation to liver parenchyma, suggesting fatty infiltration. Liver capsule smoothly marginated. No focal liver lesion. Spleen: Unremarkable. Pancreas: Unremarkable. Gallbladder and bile ducts: Unremarkable. Kidneys: Unremarkable. No kidney or ureteral stones and no hydronephrosis seen. Adrenal glands: Unremarkable. GI tract: Small hiatal hernia. Subjective thickening of the distal esophagus, possible sequela from chronic reflux esophagitis. Stomach and duodenum otherwise unremarkable. Duodenum crosses midline. Loops of small bowel normal in caliber. Normal caliber appendix well visualized in the right lower quadrant. Appendicolith noted, series 3, image 164. Large bowel normal in caliber. No abnormal colonic wall thickening, interloop ascites, or mesenteric fat stranding. Vascular: Unremarkable. Lymph nodes: Unremarkable. Miscellaneous: Fat containing right inguinal hernia defect, with hernia neck well-visualized on series 5, image 102, measuring 1.6 cm. Small fat containing umbilical hernia defect. Pelvic Organs: Prostate gland enlarged. Bladder wall unremarkable. No enlarged inguinal or pelvic sidewall lymph nodes. No free fluid. Bones: Bilateral L5 pars defects. Severe degenerative disc disease at L5-S1 grade 1 anterolisthesis of L5 on S1. IMPRESSION: 1. Right inguinal fat containing hernia defect with hernia neck estimated at 1.6 cm, series 5, image 102. 2. Small fat containing umbilical hernia defect. 3. Hepatic steatosis. 4. Small hiatal hernia with possible sequela of chronic reflux esophagitis. Consider correlation with nonemergent esophagram. 5. Appendicolith with no imaging evidence of acute appendicitis. 6. Bilateral L5 pars defects with grade 1 anterolisthesis of L5 on S1. Please note that all CT scans at this facility use dose modulation, iterative reconstruction, and/or weight-based dosing when appropriate to reduce radiation dose to as low as reasonably achievable. Dictated by Jg Amin MD @ Sep 11 2018 8:40AM (Electronically Signed) Procedure Note Jg Amin MD - 09/11/2018 INDICATION: Groin pain on right side. Possible inguinal hernia. TECHNIQUE: CT abdomen and pelvis acquired with i.v. 100 mL Omnipaque 300. Coronal andsagittal reformats were obtained. Oral contrast: Water 24 ounces COMPARISON: None FINDINGS: Cardroom Drawing Runner CT images: Nonobstructive bowel gas pattern. Moderate to severedegenerative disc disease at L5-S1 with grade 1 anterolisthesis of L5 onS1. Lower chest: Imaged lung bases are clear. No pleural or pericardialeffusions. Liver: Low-attenuation to liver parenchyma, suggesting fatty infiltration.Liver capsule smoothly marginated. No focal liver lesion. Spleen: Unremarkable. Pancreas: Unremarkable. Gallbladder and bile ducts: Unremarkable. Kidneys: Unremarkable. No kidney or ureteral stones and no hydronephrosisseen. Adrenal glands: Unremarkable. GI tract: Small hiatal hernia. Subjective thickening of the distalesophagus, possible sequela from chronic reflux esophagitis. Stomach andduodenum otherwise unremarkable. Duodenum crosses midline. Loops of smallbowel normal in caliber. Normal caliber appendix well visualized in theright lower quadrant. Appendicolith noted, series 3, image 164. Large bowel normal in caliber. No abnormal colonic wall thickening,interloop ascites, or mesenteric fat stranding. Vascular: Unremarkable. Lymph nodes: Unremarkable. Miscellaneous: Fat containing right inguinal hernia defect, with hernianeck well-visualized on series 5, image 102, measuring 1.6 cm. Small fatcontaining umbilical hernia defect. Pelvic Organs: Prostate gland enlarged. Bladder wall unremarkable. Noenlarged inguinal or pelvic sidewall lymph nodes. No free fluid. Bones: Bilateral L5 pars defects. Severe degenerative disc disease atL5-S1 grade 1 anterolisthesis of L5 on S1. IMPRESSION: 1. Right inguinal fat containing hernia defect with hernia neck estimatedat 1.6 cm, series 5, image 102. 2. Small fat containing umbilical hernia defect. 3. Hepatic steatosis. 4. Small hiatal hernia with possible sequela of chronic refluxesophagitis. Consider correlation with nonemergent esophagram. 5. Appendicolith with no imaging evidence of acute appendicitis. 6. Bilateral L5 pars defects with grade 1 anterolisthesis of L5 on S1. Please note that all CT scans at this facility use dose modulation,iterative reconstruction, and/or weight-based dosing when appropriate toreduce radiation dose to as low as reasonably achievable. Dictated by Jg Amin MD @ Sep 11 2018 8:40AM (Electronically Signed) us Daly Moreau MD CT Final Re sult from Last 3 Months or Most Recently Relevant to Health Maintenance Insurance MEDICARE PART B HB ONLY MEDICA PRIME SOLUTION HB MEDICARE PART A HB ONLY MEDICA PRIME DEQ MR PB ONLY Advance Directives * Full Code (Latest Code Status on File) Date Activated Date Inactivated Comments 04/10/2020 11:07 PM 04/13/2020 4:57 PM Question Answer Comments Code Status Discussion: Discussed * Full Code Date Activated Date Inactivated Comments 05/25/2019 11:22 AM 05/25/2019 4:39 PM * Full Code Date Activated Date Inactivated Comments 04/08/2019 2:22 PM 04/08/2019 5:29 PM * Full Code Date Activated Date Inactivated Comments 12/31/2018 9:22 AM 12/31/2018 3:56 PM * Full Code Date Activated Date Inactivated Comments 05/24/2010 2:19 AM 05/31/2010 12:47 PM Care Teams Veterans' Counselor Relationship Specialty Start Date End Date Elan Perez MD [address] [address] PCP - General Family Practice 10/31/21
[2025-01-22 20:39] LABS: Hematocrit* 37.4 % (37.0-53.0); Hemoglobin* 13.5 gm/dL (13.5-17.5); Immature Granulocytes Abs Auto 0.02 K/uL (0.00-0.30); Immature Granulocytes Pct Auto 0.4 %; Mean Corpuscular HGB Conc 36 gm/dL (32-36); Mean Corpuscular Hemoglobin 31 pg (26-34); Mean Corpuscular Volume 85 fL (80-100); RDW Coefficient of Variation % 15.6 % (11.5-15.5); Red Blood Count* 4.40 m/uL (4.30-5.90); White Blood Count* 5.14 K/uL (4.50-11.00)
[2025-01-22] MEDS: PHENobarbitaL 260 MG in 0.9 % SODIUM CHLORIDE 100 ml 100 ML 208 MG IVPB ×2 (20:49→23:16)
[2025-01-22 20:53] LABS: Lymphocytes Absolute Auto 0.30 K/uL (0.90-2.90); Slide Review Reflex No
[2025-01-22 20:58] LABS: Lactate* 5.3 mmol/L (0.5-1.9)
[2025-01-22] MEDS: LACTATED RINGERS 1000 ML 1,000 ML IV (21:10)
[2025-01-22] MEDS: diazePAM 5 MG/ML inj 20 MG IV (21:10)
[2025-01-22 21:25] LABS: Albumin* 3.5 g/dL (3.3-5.0); Chloride* 85 mmol/L (96-114)
[2025-01-22 21:28] LABS: Alanine Aminotransferase* 43 U/L (4-50); Alkaline Phosphatase* 107 U/L (40-150); Anion Gap 15 mEq/L (7-15); Aspartate Amino Transferase* 86 U/L (12-35); Bilirubin Total* 2.5 mg/dL (0.1-1.5); Blood Urea Nitrogen* 10 mg/dL (7-30); Calcium* 7.4 mg/dL (8.4-10.6); Carbon Dioxide* 22 mmol/L (20-32); Creatinine* 0.9 mg/dL (0.5-1.5); Est. Creatinine Clearance* 73.65; Estimated Glomerular Filt Rate 95 ml/min; Glucose* 134 mg/dL (60-115); Total Protein* 6.7 g/dL (6.0-8.3)
[2025-01-22 21:30] LABS: Acetaminophen* < 10.0 ug/mL (10.0-30.0); Ethanol* < 0.01 % (0.01-0.03); Potassium* 2.6 mmol/L (3.6-5.1); Salicylate* < 1.0 mg/dL (1.0-10); Sodium* 122 mmol/L (135-149)
[2025-01-22] MEDS: PIPERACILLIN/TAZOBACTAM 4.5 GM in 0.9 % SODIUM CHLORIDE Mini-bag 100 ML IVPB (21:50)
[2025-01-22 21:53] LABS: Appearance Urine Clear (Clear)
[2025-01-22 22:04] LABS: Cannabinoid Screen Urine Negative (Negative); Methamphetamines Screen Urine Negative (Negative); Tricyclic Antidepressant Urine Negative (Negative)
[2025-01-22] MEDS: POTASSIUM BICARB 25 MEQ EFFERVESCENT TAB PO (22:06)
[2025-01-22] MEDS: MAGNESIUM IV 2 GM/50 ML PIGGYBACK IVPB ×2 (22:06→23:08)
[2025-01-22] MEDS: POTASSIUM CHLORIDE 10 MEQ/100 ML PIGGYBACK 100 MEQ IVPB (22:06)
[2025-01-22 22:12] LABS: Lactate* 3.1 mmol/L (0.5-1.9)
--- NOTE | 2025-01-22 22:36 | PM.IMHP1 ---
Assessment and Plan Assessment and plan (1) Atrial fibrillation with RVR: Problem comment: Probably has paroxysmal AFib with acute AFib and RVR now. Increase metoprolol for rate control. Hold flecainide pending further evaluation. Continue Eliquis if no evidence of bleeding Status: Acute (2) Alcohol withdrawal syndrome: Problem comment: Moderately severe. Phenobarb and CIWA protocol with lorazepam Status: Acute (3) Elevated lactic acid level: Problem comment: Likely due to acute illness and alcohol related liver disease. Monitor for signs or symptoms of sepsis. Status: Acute (4) Thrombocytopenia: Problem comment: Likely due to alcohol related liver disease and portal hypertension Status: Acute (5) Alcoholic steatohepatitis: Status: Acute (6) Alcohol use disorder: Problem comment: Longstanding. Previous treatment for this, most recently about 5 years ago Status: Acute (7) Hypomagnesemia: Problem comment: Due to alcohol use disorder. Replace and follow Status: Acute (8) Hypokalemia: Problem comment: Due to alcohol use disorder and hydrochlorothiazide, replace and follow Status: Acute (9) Acute hyponatremia: Problem comment: Due to alcohol use disorder and hydrochlorothiazide. Replace and follow Status: Acute (10) Iron deficiency anemia: Problem comment: Previous evaluation for this 3-6 years ago. No longer on treatment with iron. Records indicate history of GI bleeding. Patient denies current evidence for GI bleed Status: Acute Plan 64-year-old male admitted to the hospital with multiple electrolyte abnormalities, AFib with RVR and moderate alcohol withdrawal syndrome. Admitted to address these problems and monitor for other complications including infection/sepsis, GI bleeding. Total Time Spent Total Time Spent: Total time spent in reviewing outside records, coordination of care, evaluation and management and discussing with patient and other providers ongoing management of multiple problems is 85 minutes Hospitalist- H&P: HPI History of Present Illness Date Seen: 01/22/25 Chief complaint: alcohol withdraw Narrative: Larry Lim is a 64 year old male with chronic alcohol use disorder and paroxysmal atrial fibrillation admitted through emergency room with concerns of alcohol withdrawal. Patient reports longstanding alcohol use disorder and he has been drinking whiskey heavily for the last month. Last night he decided he would stop drinking. He had his last drink last night. Today he has been feeling sick. He has been quite tremulous and nauseated. He had 1 small emesis today he is not aware of whether there was blood in it. He is not having any headache, chest pain, abdominal pain. He is unaware of palpitations. He has had no syncope. No recent falls. He reports on no symptoms of illness prior to today. Specifically reports no fever, shortness of breath, cough, sore throat, nausea or vomiting or diarrhea prior to today. No problems with urination. No blood in his stool. Last bowel movement was 2 or 3 days ago. He has been hospitalized for alcohol withdrawal in the past. Never had alcohol withdrawal seizures. He has been through treatment for alcohol use disorder most recently about 5 years ago. He has a history of paroxysmal atrial fibrillation he is on Eliquis and flecainide which he reports he has been taking regularly. He is also on metoprolol, hydrochlorothiazide and pantoprazole. Review of Systems Narrative: Reports no recent illness or injury except as noted above. [facility] Medical History (Updated 01/22/25 @ 22:56 by Ray Elliott MD) Obesity (BMI 30.0-34.9) ?E66.811 - Obesity, class 1 (ICD-10) Esophageal ulcer ?K22.10 - Ulcer of esophagus without bleeding (ICD-10) Tubular adenoma ?D36.9 - Benign neoplasm, unspecified site (ICD-10) Iron deficiency anemia ?D50.9 - Iron deficiency anemia, unspecified (ICD-10) Thrombocytopenia ?D69.6 - Thrombocytopenia, unspecified (ICD-10) Alcoholic steatohepatitis ?K70.10 - Alcoholic hepatitis without ascites (ICD-10) Alcohol use disorder ?F10.90 - Alcohol use, unspecified, uncomplicated (ICD-10) Surgical History (Updated 01/22/25 @ 22:50 by Ray Elliott MD) History of esophagogastroduodenoscopy (EGD) ?Z98.890 - Other specified postprocedural states (ICD-10) History of colonoscopy ?Z98.890 - Other specified postprocedural states (ICD-10) History of umbilical hernia repair ?Z98.890 - Other specified postprocedural states (ICD-10) ?Z87.19 - Personal history of other diseases of the digestive system (ICD-10) History of inguinal hernia repair ?Z98.890 - Other specified postprocedural states (ICD-10) ?Z87.19 - Personal history of other diseases of the digestive system (ICD-10) Family History (Updated 01/22/25 @ 22:50 by Ray Elliott MD) Father Alcohol dependence Social History (Updated 01/22/25 @ 22:52 by Ray Elliott MD) Narrative: He lives with his and son in [place]. 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 Code status is full. 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 He drinks alcohol fairly heavily, a 5th of whiskey per day, he is a former smoker Smoking Status: Former smoker Do you use any of these nicotine containing products: None How often do you have a drink containing alcohol: 4 or more times a week How many standard drinks containing alcohol do you have on a typical day: 10 or more How often do you have six or more drinks on one occasion: Daily or almost daily AUDIT-C Alcohol total score: 12 Non-prescribed substance use: denies use Meds Home Medications and Allergies Home Medications ?Medication ?Instructions ?Recorded ?Confirmed ?Type apixaban 5 mg tablet (Eliquis) 5 mg PO BID 01/22/25 01/22/25 History flecainide 100 mg tablet 100 mg PO Q12H 01/22/25 01/22/25 History hydrochlorothiazide 25 mg tablet 25 mg PO DAILY 01/22/25 01/22/25 History metoprolol succinate 25 mg 12.5 mg PO DAILY 01/22/25 01/22/25 History tablet,extended release 24 hr pantoprazole 40 mg tablet,delayed 40 mg PO DAILY 01/22/25 01/22/25 History release Allergies Allergy/AdvReac Type Severity Reaction Status Date / Time meperidine Allergy Unknown Verified 01/22/25 22:12 Exam Narrative: Exam Narrative: He is alert and appears in no obvious distress. He gives his own history. He is oriented to his circumstances. No apparent delusions or hallucinations. Head is without trauma. Eyes normal. Oropharynx with small airway and dry mucous membranes. Neck is supple without mass or adenopathy. No jugular venous distension. Respirations are clear to auscultation. No wheezing rales rhonchi. Cardiovascular: S1, S2, relatively regular tachycardia. No murmur gallop or rub. Abdomen: Bowel sounds active. Abdomen is soft without tenderness or mass. External genitalia normal. Extremities without edema. He has good capillary refill in all 4 extremities. Good peripheral pulses. Const: Vital Signs, click to edit/add: Vital Signs - 24 hr 01/22/25 20:14 01/22/25 20:20 01/22/25 20:29 Temperature 99 F 99 F Pulse Rate Pulse Rate [Pulse Oximeter] 133 H 126 H Respiratory Rate 20 31 H 18 Blood Pressure Blood Pressure [Le ft Arm] 103/74 Blood Pressure [Ri ght Upper Arm] 135/88 Pulse Oximetry 92 94 92 Oxygen Delivery Me thod Room Air Nasal Cannula Oxygen Flow Rate 2 01/22/25 20:30 01/22/25 20:31 01/22/25 20:32 Temperature Pulse Rate 116 H 120 H 123 H Pulse Rate [Pulse Oximeter] Respiratory Rate 33 H 36 H 28 H Blood Pressure 115/81 116/87 Blood Pressure [Le ft Arm] Blood Pressure [Ri ght Upper Arm] Pulse Oximetry 94 91 91 Oxygen Delivery Me thod Oxygen Flow Rate 01/22/25 20:45 01/22/25 20:47 01/22/25 20:56 Temperature Pulse Rate 123 H 114 H Pulse Rate [Pulse Oximeter] Respiratory Rate 25 H 35 H 29 H Blood Pressure 119/84 103/74 Blood Pressure [Le ft Arm] Blood Pressure [Ri ght Upper Arm] Pulse Oximetry 92 86 L 93 Oxygen Delivery Me thod Nasal Cannula Oxygen Flow Rate 2 01/22/25 21:00 01/22/25 21:02 01/22/25 21:03 Temperature Pulse Rate 110 H 112 H 113 H Pulse Rate [Pulse Oximeter] Respiratory Rate 32 H 37 H 34 H Blood Pressure 111/74 Blood Pressure [Le ft Arm] Blood Pressure [Ri ght Upper Arm] Pulse Oximetry 91 93 92 Oxygen Delivery Me thod Nasal Cannula Nasal Cannula Oxygen Flow Rate 2 2 01/22/25 21:12 01/22/25 21:15 01/22/25 21:17 Temperature Pulse Rate 116 H 109 H Pulse Rate [Pulse Oximeter] Respiratory Rate 28 H 21 Blood Pressure 125/87 Blood Pressure [Le ft Arm] Blood Pressure [Ri ght Upper Arm] Pulse Oximetry 94 95 94 Oxygen Delivery Me thod Nasal Cannula Oxygen Flow Rate 2 01/22/25 21:30 01/22/25 21:32 01/22/25 21:45 Temperature Pulse Rate 104 H 111 H 117 H Pulse Rate [Pulse Oximeter] Respiratory Rate 29 H 29 H 25 H Blood Pressure 117/77 Blood Pressure [Le ft Arm] Blood Pressure [Ri ght Upper Arm] Pulse Oximetry 95 95 96 Oxygen Delivery Me thod Oxygen Flow Rate 01/22/25 22:00 01/22/25 22:02 01/22/25 22:15 Temperature Pulse Rate 118 H 123 H 131 H Pulse Rate [Pulse Oximeter] Respiratory Rate 23 21 17 Blood Pressure 119/82 Blood Pressure [Le ft Arm] Blood Pressure [Ri ght Upper Arm] Pulse Oximetry 98 96 95 Oxygen Delivery Me thod Oxygen Flow Rate Documenting provider has reviewed patient's vital signs: yes Hospitalist - H&P: Result Labs Labs: Short CBC 01/22/25 Range/Units 20:29 WBC 5.14 (4.50-11.00) K/uL Hgb 13.5 (13.5-17.5) gm/dL Hct 37.4 (37.0-53.0) % Plt Count 103 L (140-440) K/uL BMP 01/22/25 20:29 Sodium 122 L* Potassium 2.6 L* Chloride 85 L Carbon Dioxide 22 BUN 10 Creatinine 0.9 Glucose 134 H Calcium 7.4 L Liver Function 01/22/25 Range/Units 20:29 Total Bilirubin 2.5 H (0.1-1.5) mg/dL AST 86 H (12-35) U/L ALT 43 (4-50) U/L Alkaline Phosphatase 107 (40-150) U/L Albumin 3.5 (3.3-5.0) g/dL Urine 01/22/25 Range/Units 21:45 Urine Color Yellow (Yellow) Urine Appearance Clear (Clear) Urine pH 6.5 (5.0-8.5) Ur Specific [place] 1.015 (1.000-1.030) Urine Protein 2+ A (Negative) Urine Glucose (UA) Negative (Negative) ECG Attestation: I personally reviewed and interpreted this ECG as follows: (AFib with RVR, rate of 131, nonspecific T-wave abnormality.) ECG interpretation date: 01/22/25
[2025-01-22] MEDS: METOPROLOL TARTRATE 1 MG/ML inj 5 MG IVP (23:08)
[2025-01-22 23:11] LABS: Sodium* 125 mmol/L (135-149)
[2025-01-22] MEDS: METOPROLOL SUCCINATE (XL) 25 MG TAB PO (23:11)
[2025-01-22] MEDS: THIAMINE 100 MG TABLET PO (23:12)
[2025-01-22] MEDS: POTASSIUM BICARB 25 MEQ EFFERVESCENT TAB 50 MEQ PO (23:13)
[2025-01-22 23:32] LABS: NT Pro B Type NatriureticPept* 221 pg/mL (See Note)
[2025-01-22] MEDS: 5 % DEX/0.9 SOD CHL+KCL 20 mEq 1,000 ML 125 ML IV (23:56)
[2025-01-23] VITALS (14 sets, daily range): BP systolic 114–138; BP diastolic 81–95; PULSE 88–111; RESP 14–24; TEMP 36.4–36.7; O2SAT 86–96
[2025-01-23 06:28] LABS: Lactate* 1.3 mmol/L (0.5-1.9)
[2025-01-23 06:30] LABS: Hematocrit* 35.5 % (37.0-53.0); Hemoglobin* 12.4 gm/dL (13.5-17.5); Immature Granulocytes Pct Auto 0.6 %; Mean Corpuscular HGB Conc 35 gm/dL (32-36); Mean Corpuscular Hemoglobin 31 pg (26-34); Mean Corpuscular Volume 87 fL (80-100); RDW Coefficient of Variation % 15.9 % (11.5-15.5); Red Blood Count* 4.06 m/uL (4.30-5.90); White Blood Count* 3.50 K/uL (4.50-11.00)
[2025-01-23 06:51] LABS: Immature Granulocytes Abs Auto 0.00 K/uL (0.00-0.30); Lymphocytes Absolute Auto 0.80 K/uL (0.90-2.90)
[2025-01-23 06:52] LABS: Slide Review Reflex No
[2025-01-23] MEDS: OMEPRAZOLE 20 MG CAPSULE DR PO (06:57)
[2025-01-23 07:09] LABS: Albumin* 3.2 g/dL (3.3-5.0); Chloride* 94 mmol/L (96-114); Potassium* 3.3 mmol/L (3.6-5.1); Sodium* 130 mmol/L (135-149)
[2025-01-23 07:12] LABS: Alanine Aminotransferase* 35 U/L (4-50); Alkaline Phosphatase* 94 U/L (40-150); Anion Gap 6 mEq/L (7-15); Aspartate Amino Transferase* 77 U/L (12-35); Bilirubin Direct* 0.4 mg/dL (0.0-0.5); Bilirubin Total* 2.4 mg/dL (0.1-1.5); Blood Urea Nitrogen* 8 mg/dL (7-30); Calcium* 7.5 mg/dL (8.4-10.6); Carbon Dioxide* 30 mmol/L (20-32); Creatinine* 0.8 mg/dL (0.5-1.5); Est. Creatinine Clearance* 73.65; Estimated Glomerular Filt Rate 98 ml/min; Glucose* 120 mg/dL (60-115); Total Protein* 6.4 g/dL (6.0-8.3)
--- NOTE | 2025-01-23 07:30 | PC.NURSE ---
Pt pleasant,?alert?and oriented.?Pt?in?afib?with RVR?and NVR?throughout shift, bouncing between the 90s- low?100s. Upon ambulating to the bathroom, staff noticed?bruises?on?the left?side going from the?ribs to the waist. Upon questioning, pt stated falling on?his driveway?a few days ago. Denies pain with bruise.?Pt up with SBA. O2 dipped to?the high?80s when sleeping, placed on 1L o2.?CIWAs 9 upon arrival, went down to 5 during shift. Pt uses call light appropriately. Pt in bed, appears to be resting, call light within reach.
[2025-01-23] MEDS: 5 % DEX/0.9 SOD CHL+KCL 20 mEq 1,000 ML 125 ML IV (08:01)
[2025-01-23] MEDS: MULTIVITAMIN/MINERALS 1 TABLET 1 TAB PO (08:58)
[2025-01-23] MEDS: POTASSIUM BICARB 25 MEQ EFFERVESCENT TAB 50 MEQ PO (08:58)
[2025-01-23] MEDS: APIXABAN 5 MG TABLET PO ×2 (08:59→20:43)
[2025-01-23] MEDS: FLECAINIDE ACETATE 50 MG TABLET 100 MG PO ×2 (08:59→20:42)
[2025-01-23] MEDS: MAGNESIUM OXIDE 400 MG TABLET PO (08:59)
[2025-01-23] MEDS: METOPROLOL SUCCINATE (XL) 25 MG TAB PO ×2 (08:59→20:42)
[2025-01-23 11:20] LABS: D Dimer Quantitative* 0.39 ug/ml (0.00-0.50)
--- NOTE | 2025-01-23 11:22 | CRLHL7_ITS ---
For Patients: As a result of the Cures Act, medical imaging exams and procedure reports are released immediately into your electronic medical record. You may view this report before your referring provider. If you have questions, please contact your health care provider. INDICATION: Hypoxia TECHNIQUE: Chest radiograph 2 views COMPARISON: None FINDINGS: Mediastinum: The central pulmonary arteries are near the upper limits of normal in size. The heart silhouette is normal in size and morphology. Lung: Discoid atelectasis is present in the right lung base with small lung volumes. No sign of pleural effusion seen. No pneumothorax is identified. Bone and Soft tissue: Unremarkable for age. IMPRESSION: 1. Discoid atelectasis is present in the right lung base with small lung volumes. Dictated by Ayush Fall MD @ 01/23/2025 12:06:47 PM Dictated by: Ayush Fall MD @ 01/23/2025 12:06:51 (Electronically Signed)
--- NOTE | 2025-01-23 12:37 | PM.IMPN1 ---
Assessment and Plan Assessment and plan (1) Atrial fibrillation with RVR: Problem comment: Probably has paroxysmal AFib with acute AFib and RVR now. Increased metoprolol now with good rate control. Resume flecainide. Resume apixaban in the absence of bleeding. Status: Acute (2) Alcohol withdrawal syndrome: Problem comment: Moderately severe. Phenobarb and CIWA protocol with lorazepam. Clinically improving. Status: Acute (3) Elevated lactic acid level: Problem comment: Likely due to acute illness and alcohol related liver disease. Monitor for signs or symptoms of sepsis. Resolved Status: Acute (4) Thrombocytopenia: Problem comment: Likely due to alcohol related liver disease and portal hypertension. Stable Status: Acute (5) Alcoholic steatohepatitis: Status: Acute (6) Alcohol use disorder: Problem comment: Longstanding. Previous treatment for this, most recently about 5 years ago Status: Acute (7) Hypomagnesemia: Problem comment: Due to alcohol use disorder. Replace and follow. Improved Status: Acute (8) Hypokalemia: Problem comment: Due to alcohol use disorder and hydrochlorothiazide, replace and follow. Improved Status: Acute (9) Acute hyponatremia: Problem comment: Due to alcohol use disorder and hydrochlorothiazide. Replace and follow. Improved Status: Acute (10) Iron deficiency anemia: Problem comment: Previous evaluation for this 3-6 years ago. No longer on treatment with iron. Records indicate history of GI bleeding. Patient denies current evidence for GI bleed. Normal ferritin may represent alcoholic steatohepatitis. Status: Acute (11) Hypoxia: Problem comment: Likely multifactorial. Sedation, undiagnosed sleep apnea, atelectasis. Encourage ambulation and up in chair. Status: Acute Plan Continue in hospital for ongoing monitoring of above medical problems. Anticipate possible discharge to home in the next 1-2 days if no longer requiring medication for alcohol withdrawal, tolerating p.o. food and fluid, no longer requiring oxygen and maintaining normal electrolytes Total Time Spent Total Time Spent: Total time spent today is 55 minutes in coordination of care and discussing with patient other providers ongoing management of above medical problems Subjective Date Seen: 01/23/25 Interval history: Larry Lim is a 64 year old male with chronic alcohol use disorder and paroxysmal atrial fibrillation admitted through emergency room with concerns of alcohol withdrawal. Patient reports longstanding alcohol use disorder and he has been drinking whiskey heavily for the last month. Last night he decided he would stop drinking. He had his last drink last night. Today he has been feeling sick. He has been quite tremulous and nauseated. He had 1 small emesis today he is not aware of whether there was blood in it. He is not having any headache, chest pain, abdominal pain. He is unaware of palpitations. He has had no syncope. No recent falls. He reports on no symptoms of illness prior to today. Specifically reports no fever, shortness of breath, cough, sore throat, nausea or vomiting or diarrhea prior to today. No problems with urination. No blood in his stool. Last bowel movement was 2 or 3 days ago. He has been hospitalized for alcohol withdrawal in the past. Never had alcohol withdrawal seizures. He has been through treatment for alcohol use disorder most recently about 5 years ago. He has a history of paroxysmal atrial fibrillation he is on Eliquis and flecainide which he reports he has been taking regularly. He is also on metoprolol, hydrochlorothiazide and pantoprazole. 01/23/2025: Patient reports feeling better today. He is a little sedated from medication but otherwise oriented to his circumstances. He has no concerns today. He reports a poor appetite but has begun to eat some food. Mildly hypoxic without dyspnea. No chest pain. No abdominal pain. Exam Narrative: Exam Narrative: Sleepy but arouses to voice. Oriented to his circumstances. Respirations are clear to auscultation. Cardiovascular: S1, S2, regular rate and rhythm. Abdomen: Bowel sounds active. Abdomen is soft without tenderness or mass. Extremities without edema. Const: Vital Signs, click to edit/add: Vital Signs - 24 hr 01/22/25 20:14 01/22/25 20:20 01/22/25 20:29 Temperature 99 F 99 F Pulse Rate Pulse Rate [Pulse Oximeter] 133 H 126 H Respiratory Rate 20 31 H 18 Blood Pressure Blood Pressure [Le ft Arm] 103/74 Blood Pressure [Ri ght Arm] Blood Pressure [Ri ght Upper Arm] 135/88 Pulse Oximetry 92 94 92 Oxygen Delivery Me thod Room Air Nasal Cannula Oxygen Flow Rate 2 01/22/25 20:30 01/22/25 20:31 01/22/25 20:32 Temperature Pulse Rate 116 H 120 H 123 H Pulse Rate [Pulse Oximeter] Respiratory Rate 33 H 36 H 28 H Blood Pressure 115/81 116/87 Blood Pressure [Le ft Arm] Blood Pressure [Ri ght Arm] Blood Pressure [Ri ght Upper Arm] Pulse Oximetry 94 91 91 Oxygen Delivery Me thod Oxygen Flow Rate 01/22/25 20:45 01/22/25 20:47 01/22/25 20:56 Temperature Pulse Rate 123 H 114 H Pulse Rate [Pulse Oximeter] Respiratory Rate 25 H 35 H 29 H Blood Pressure 119/84 103/74 Blood Pressure [Le ft Arm] Blood Pressure [Ri ght Arm] Blood Pressure [Ri ght Upper Arm] Pulse Oximetry 92 86 L 93 Oxygen Delivery Me thod Nasal Cannula Oxygen Flow Rate 2 01/22/25 21:00 01/22/25 21:02 01/22/25 21:03 Temperature Pulse Rate 110 H 112 H 113 H Pulse Rate [Pulse Oximeter] Respiratory Rate 32 H 37 H 34 H Blood Pressure 111/74 Blood Pressure [Le ft Arm] Blood Pressure [Ri ght Arm] Blood Pressure [Ri ght Upper Arm] Pulse Oximetry 91 93 92 Oxygen Delivery Me thod Nasal Cannula Nasal Cannula Oxygen Flow Rate 2 2 01/22/25 21:12 01/22/25 21:15 01/22/25 21:17 Temperature Pulse Rate 116 H 109 H Pulse Rate [Pulse Oximeter] Respiratory Rate 28 H 21 Blood Pressure 125/87 Blood Pressure [Le ft Arm] Blood Pressure [Ri ght Arm] Blood Pressure [Ri ght Upper Arm] Pulse Oximetry 94 95 94 Oxygen Delivery Me thod Nasal Cannula Oxygen Flow Rate 2 01/22/25 21:30 01/22/25 21:32 01/22/25 21:45 Temperature Pulse Rate 104 H 111 H 117 H Pulse Rate [Pulse Oximeter] Respiratory Rate 29 H 29 H 25 H Blood Pressure 117/77 Blood Pressure [Le ft Arm] Blood Pressure [Ri ght Arm] Blood Pressure [Ri ght Upper Arm] Pulse Oximetry 95 95 96 Oxygen Delivery Me thod Oxygen Flow Rate 01/22/25 22:00 01/22/25 22:02 01/22/25 22:15 Temperature Pulse Rate 118 H 123 H 131 H Pulse Rate [Pulse Oximeter] Respiratory Rate 23 21 17 Blood Pressure 119/82 Blood Pressure [Le ft Arm] Blood Pressure [Ri ght Arm] Blood Pressure [Ri ght Upper Arm] Pulse Oximetry 98 96 95 Oxygen Delivery Me thod Oxygen Flow Rate 01/22/25 22:38 01/22/25 22:38 01/22/25 23:00 Temperature 98.5 F Pulse Rate Pulse Rate [Pulse Oximeter] 130 H 103 H Respiratory Rate 18 18 18 Blood Pressure Blood Pressure [Le ft Arm] 141/123 H Blood Pressure [Ri ght Arm] Blood Pressure [Ri ght Upper Arm] Pulse Oximetry 96 93 Oxygen Delivery Me thod Nasal Cannula Oxygen Flow Rate 01/22/25 23:00 01/23/25 00:16 01/23/25 00:40 Temperature Pulse Rate 138 H Pulse Rate [Pulse Oximeter] 111 H Respiratory Rate Blood Pressure Blood Pressure [Le ft Arm] 138/94 H Blood Pressure [Ri ght Arm] Blood Pressure [Ri ght Upper Arm] Pulse Oximetry 92 86 L Oxygen Delivery Me thod Room Air Oxygen Flow Rate 01/23/25 00:43 01/23/25 03:32 01/23/25 07:00 Temperature 97.9 F Pulse Rate Pulse Rate [Pulse Oximeter] 107 H 90 Respiratory Rate 18 Blood Pressure Blood Pressure [Le ft Arm] 114/93 H Blood Pressure [Ri ght Arm] Blood Pressure [Ri ght Upper Arm] Pulse Oximetry 93 96 Oxygen Delivery Me thod Nasal Cannula Nasal Cannula Oxygen Flow Rate 1 1 01/23/25 07:30 01/23/25 07:55 01/23/25 07:57 Temperature 97.6 F 97.6 F Pulse Rate 88 Pulse Rate [Pulse Oximeter] 90 90 Respiratory Rate 18 18 Blood Pressure Blood Pressure [Le ft Arm] 134/95 H 134/95 H Blood Pressure [Ri ght Arm] Blood Pressure [Ri ght Upper Arm] Pulse Oximetry 91 91 Oxygen Delivery Me thod Room Air Room Air Oxygen Flow Rate 01/23/25 11:00 01/23/25 11:54 Temperature 97.7 F 97.7 F Pulse Rate Pulse Rate [Pulse Oximeter] 95 95 Respiratory Rate 24 24 Blood Pressure Blood Pressure [Le ft Arm] 134/95 H Blood Pressure [Ri ght Arm] 126/89 126/89 Blood Pressure [Ri ght Upper Arm] Pulse Oximetry 92 88 Oxygen Delivery Me thod Room Air Room Air Oxygen Flow Rate Documenting provider has reviewed patient's vital signs: yes Labs Labs: Laboratory Results - last 24 hr 01/22/25 01/22/25 01/22/25 20:29 21:45 22:05 WBC 5.14 RBC 4.40 Hgb 13.5 Hct 37.4 MCV 85 MCH 31 MCHC 36 RDW Coeff of [place] 15.6 H Plt Count 103 L Neut % (Auto) 89.1 H Lymph % (Auto) 5.6 L [place] % (Auto) 4.3 Eos % (Auto) 0.0 Baso % (Auto) 0.6 Neut # (Auto) 4.60 Lymph # (Auto) 0.30 L [place] # (Auto) 0.20 Eos # (Auto) 0.00 Baso # (Auto) 0.03 Abs Immat Gran (auto) 0.02 Imm/Tot Granulo (auto) 0.4 D-Dimer Quant (PE/DVT) Sodium 122 L* 125 L Potassium 2.6 L* Chloride 85 L Carbon Dioxide 22 Anion Gap 15 BUN 10 Creatinine 0.9 Estimated Creat Clear 73.65 Estimated GFR 95 Glucose 134 H Lactate 5.3 H* 3.1 H Calcium 7.4 L Magnesium 0.8 L* Ferritin Total Bilirubin 2.5 H Direct Bilirubin AST 86 H ALT 43 Alkaline Phosphatase 107 Troponin I 0.01 NT-Pro-B Natriuret Pep 221 Total Protein 6.7 Albumin 3.5 Lipase 298 TSH 0.897 Urine Color Yellow Urine Appearance Clear Urine pH 6.5 Ur Specific [place] 1.015 Urine Protein 2+ A Urine Glucose (UA) Negative Urine Ketones 1+ A Urine Blood Trace-intact A Urine Nitrite Negative Urine Bilirubin Negative Urine Urobilinogen 1.0 Ur Leukocyte Esterase Negative Urine RBC 0-2 Urine WBC 0-2 Ur Squamous Epith Cells None Urine Bacteria None Salicylates < 1.0 L Urine Opiates Screen Negative Ur Oxycodone Screen Negative Urine Methadone Screen Negative Acetaminophen < 10.0 Ur Barbiturates Screen POSITIVE A U Tricyclic Antidepress Negative Ur Phencyclidine Scrn Negative Ur Amphetamines Screen Negative U Methamphetamines Scrn Negative U Benzodiazepines Scrn Negative Urine Cocaine Screen Negative U Marijuana (THC) Screen Negative Ur Drug Screen Comment See Note Ethyl Alcohol < 0.01 Lab Acknowledgement 01/22/25 01/22/25 01/23/25 22:49 22:56 05:55 WBC 3.50 L RBC 4.06 L Hgb 12.4 L Hct 35.5 L MCV 87 MCH 31 MCHC 35 RDW Coeff of [place] 15.9 H Plt Count 99 L Neut % (Auto) 69.9 Lymph % (Auto) 21.7 [place] % (Auto) 6.3 Eos % (Auto) 0.6 Baso % (Auto) 0.9 Neut # (Auto) 2.40 Lymph # (Auto) 0.80 L [place] # (Auto) 0.20 Eos # (Auto) 0.00 Baso # (Auto) 0.00 Abs Immat Gran (auto) 0.00 Imm/Tot Granulo (auto) 0.6 D-Dimer Quant (PE/DVT) 0.39 Sodium 130 L Potassium 3.3 L Chloride 94 L Carbon Dioxide 30 Anion Gap 6 L BUN 8 Creatinine 0.8 Estimated Creat Clear 73.65 Estimated GFR 98 Glucose 120 H Lactate 1.3 Calcium 7.5 L Magnesium 2.0 Ferritin 358.0 Total Bilirubin 2.4 H Direct Bilirubin 0.4 AST 77 H ALT 35 Alkaline Phosphatase 94 Troponin I NT-Pro-B Natriuret Pep Total Protein 6.4 Albumin 3.2 L Lipase TSH Urine Color Urine Appearance Urine pH Ur Specific [place] Urine Protein Urine Glucose (UA) Urine Ketones Urine Blood Urine Nitrite Urine Bilirubin Urine Urobilinogen Ur Leukocyte Esterase Urine RBC Urine WBC Ur Squamous Epith Cells Urine Bacteria Salicylates Urine Opiates Screen Ur Oxycodone Screen Urine Methadone Screen Acetaminophen Ur Barbiturates Screen U Tricyclic Antidepress Ur Phencyclidine Scrn Ur Amphetamines Screen U Methamphetamines Scrn U Benzodiazepines Scrn Urine Cocaine Screen U Marijuana (THC) Screen Ur Drug Screen Comment Ethyl Alcohol Lab Acknowledgement Test Added Test Added Test Added
--- NOTE | 2025-01-23 16:04 | PC.NURSE ---
End of shift-- Pt has been pleasant and cooperative. Drowsy, but alert and oriented to person and place. VSS, though occasionally tachycardic and pt is afebrile. SPO2 dropped as low as 85% on RA and was maintained >90% on 1L per n.c. He denied any pain. CIWA from 0-7 today and pt was given no Ativan, only scheduled phenobarbital. Telemetry shows afib with NVR. LS CTA. He denied nausea and tolerated a regular diet without difficulty. Pt was up ambulating to BR and in hallways with assist of 1 and tolerated it well. O2 sats maintained >90% on RA while ambulating. HR increased to 130s with 1st ambulation, but 99-100 consistently during second.
[2025-01-23] MEDS: SODIUM CHLORIDE 0.9 % (FLUSH) 10 ML SYRINGE 5 ML IVF (20:43)
[2025-01-23] MEDS: THIAMINE 100 MG TABLET PO (22:44)
--- NOTE | 2025-01-23 23:20 | PC.NURSE ---
Patient remains alert and oriented x3, forgetful of date(Year). No signs of alcohol withdrawal noted this shift. Patient uses call light appropriately. Ambulates in the hallway with Ax1. Afib with intermittent RVR on tele. Other vitals stable.
[2025-01-24] VITALS (9 sets, daily range): BP systolic 128–142; BP diastolic 84–98; PULSE 90–100; RESP 16–18; TEMP 36.1–36.6; O2SAT 97–98
--- NOTE | 2025-01-24 05:09 | PC.NURSE ---
Pt states he is feeling much better this night. Up IND and stable on feet. Reporting zero pain. CIWAs unremarkable. Cognition intact. Pleasant and cooperative.
[2025-01-24 07:02] LABS: Lactate* 1.0 mmol/L (0.5-1.9)
[2025-01-24 07:03] LABS: Hematocrit* 35.3 % (37.0-53.0); Hemoglobin* 12.1 gm/dL (13.5-17.5); Immature Granulocytes Abs Auto 0.01 K/uL (0.00-0.30); Immature Granulocytes Pct Auto 0.2 %; Lymphocytes Absolute Auto 1.20 K/uL (0.90-2.90); Mean Corpuscular HGB Conc 34 gm/dL (32-36); Mean Corpuscular Hemoglobin 31 pg (26-34); Mean Corpuscular Volume 89 fL (80-100); RDW Coefficient of Variation % 16.1 % (11.5-15.5); Red Blood Count* 3.95 m/uL (4.30-5.90); White Blood Count* 4.72 K/uL (4.50-11.00)
[2025-01-24 07:06] LABS: Slide Review Reflex No
[2025-01-24] MEDS: OMEPRAZOLE 20 MG CAPSULE DR PO (07:08)
[2025-01-24 07:21] LABS: Chloride* 95 mmol/L (96-114); Potassium* 3.2 mmol/L (3.6-5.1); Sodium* 130 mmol/L (135-149)
[2025-01-24 07:24] LABS: Alanine Aminotransferase* 27 U/L (4-50); Alkaline Phosphatase* 101 U/L (40-150); Anion Gap 9 mEq/L (7-15); Aspartate Amino Transferase* 50 U/L (12-35); Bilirubin Direct* 0.4 mg/dL (0.0-0.5); Bilirubin Total* 1.2 mg/dL (0.1-1.5); Blood Urea Nitrogen* 12 mg/dL (7-30); Calcium* 7.5 mg/dL (8.4-10.6); Carbon Dioxide* 26 mmol/L (20-32); Creatinine* 0.8 mg/dL (0.5-1.5); Est. Creatinine Clearance* 73.65; Estimated Glomerular Filt Rate 98 ml/min; Glucose* 115 mg/dL (60-115); Total Protein* 6.1 g/dL (6.0-8.3)
[2025-01-24 07:38] LABS: Albumin* 3.0 g/dL (3.3-5.0)
[2025-01-24] MEDS: POTASSIUM BICARB 25 MEQ EFFERVESCENT TAB 50 MEQ PO (08:13)
[2025-01-24] MEDS: CARBOXYMETHYLCELLULOSE (REFRESH PLUS) TEARS 1 DROP EYE-BOTH (08:14)
[2025-01-24] MEDS: APIXABAN 5 MG TABLET PO (08:45)
[2025-01-24] MEDS: FLECAINIDE ACETATE 50 MG TABLET 100 MG PO (08:46)
[2025-01-24] MEDS: MULTIVITAMIN/MINERALS 1 TABLET 1 TAB PO (08:46)
[2025-01-24] MEDS: METOPROLOL SUCCINATE (XL) 25 MG TAB PO (08:46)
[2025-01-24] MEDS: MAGNESIUM OXIDE 400 MG TABLET PO (08:46)
[2025-01-24] MEDS: SODIUM CHLORIDE 0.9 % (FLUSH) 10 ML SYRINGE 5 ML IVF (08:46)
--- NOTE | 2025-01-24 10:20 | PC.NURSE ---
Pt is doing well this morning. VSS. Denies pain. CIWA assessment was unremarkable. Pt is ambulating independently, showered before discharge. Pt signed belongings and discharged instructions. Instructions were reviewed with , Carin, as well. No further questions or concerns at this time. Pt discharged home via at 0955.
--- NOTE | 2025-01-24 11:10 | P.DS_ITS ---
DS: Providers Provider Date Seen: 01/24/25 Date of admission: 01/22/25 22:35 Primary care physician: Not a Local Provider Admitting Clinician: Ray Elliott MD Attending Physician on discharge: Ray Elliott MD Date of Discharge: 01/24/25 DS: Diagnosis Discharge Diagnosis (1) Atrial fibrillation with RVR: Status: Acute Problem details: Previously had paroxysmal AFib. Now with AFib and RVR. Increased metoprolol to 25 mg b.i.d. now with good rate control. Resume flecainide. Resume apixaban in the absence of bleeding. Continue higher dose of metoprolol for rate control pending outpatient follow-up with primary care and Cardiology (2) Alcohol withdrawal syndrome: Status: Acute Problem details: Moderately severe. Phenobarb and CIWA protocol with lorazepam. Signs and symptoms of withdrawal resolved (3) Elevated lactic acid level: Status: Acute Problem details: Likely due to acute illness and alcohol related liver disease. Monitor for signs or symptoms of sepsis. Resolved (4) Thrombocytopenia: Status: Acute Problem details: Likely due to alcohol related liver disease and probable portal hypertension. Stable (5) Alcoholic steatohepatitis: Status: Acute Problem details: Consider outpatient evaluation for cirrhosis (6) Alcohol use disorder: Status: Acute Problem details: Longstanding. Previous treatment for this, most recently about 5 years ago. Recommended reengaging with outpatient alcohol treatment. (7) Hypomagnesemia: Status: Acute Problem details: Due to alcohol use disorder. Replace and follow. Improved. Outpatient magnesium supplementation and recheck magnesium level in a week (8) Hypokalemia: Status: Acute Problem details: Due to alcohol use disorder and hydrochlorothiazide, replace and follow. Improved. Stop hydrochlorothiazide. Stop alcohol. Recheck in a week (9) Acute hyponatremia: Status: Acute Problem details: Due to alcohol use disorder and hydrochlorothiazide. Replace and follow. Improved. Stop hydrochlorothiazide. Stop alcohol. Recheck in a week (10) Iron deficiency anemia: Status: Acute Problem details: Previous evaluation for this 3-6 years ago. No longer on treatment with iron. Records indicate history of GI bleeding. Patient denies current evidence for GI bleed. Normal ferritin may represent alcoholic steatohepatitis. (11) Hypoxia: Status: Acute Problem details: Likely multifactorial. Sedation, undiagnosed sleep apnea, atelectasis. Encourage ambulation and up in chair. Hypoxia resolved without specific intervention DS: Summary Hospital Course Hospital Course: Larry Lim is a 64 year old male with chronic alcohol use disorder and paroxysmal atrial fibrillation admitted through emergency room with concerns of alcohol withdrawal. Patient reports longstanding alcohol use disorder and he has been drinking whiskey heavily for the last month. Last night he decided he would stop drinking. He had his last drink last night. Today he has been feeling sick. He has been quite tremulous and nauseated. He had 1 small emesis today he is not aware of whether there was blood in it. He is not having any headache, chest pain, abdominal pain. He is unaware of palpitations. He has had no syncope. No recent falls. He reports on no symptoms of illness prior to today. Specifically reports no fever, shortness of breath, cough, sore throat, nausea or vomiting or diarrhea prior to today. No problems with urination. No blood in his stool. Last bowel movement was 2 or 3 days ago. He has been hospitalized for alcohol withdrawal in the past. Never had alcohol withdrawal seizures. He has been through treatment for alcohol use disorder most recently about 5 years ago. He has a history of paroxysmal atrial fibrillation he is on Eliquis and flecainide which he reports he has been taking regularly. He is also on metoprolol, hydrochlorothiazide and pantoprazole. 01/23/2025: Patient reports feeling better today. He is a little sedated from medication but otherwise oriented to his circumstances. He has no concerns today. He reports a poor appetite but has begun to eat some food. Mildly hypoxic without dyspnea. No chest pain. No abdominal pain. 01/23/2025: Patient reports being back to normal today. He is eating normally. He is off oxygen. He feels strong. He is walking without assistance. Heart rate is hovering around 100 in AFib. Status at Discharge Functional status at discharge: independent ambulation Overall status at discharge: patient is back to baseline Time Spent with Patient Time attestation: Total time spent providing and/or coordinating discharge services: 40 minutes Time spent: Greater than 30 minutes Exam Narrative: Exam Narrative: He is alert and appears in no distress. Mood and affect are bright. Respirations normal. Cardiac: S1, S2, somewhat irregular rhythm. Const: Vital Signs, click to edit/add: Vital Signs - 24 hr 01/23/25 11:54 01/23/25 14:00 01/23/25 15:30 Temperature 97.7 F Pulse Rate Pulse Rate [Pulse Oximeter] 95 99 Respiratory Rate 24 14 Blood Pressure [Le ft Arm] Blood Pressure [Ri ght Arm] 126/89 Pulse Oximetry 88 96 Oxygen Delivery Me thod Room Air Room Air Oxygen Flow Rate 01/23/25 15:49 01/23/25 19:14 01/24/25 00:03 Temperature 97.7 F 98.1 F 97.9 F Pulse Rate Pulse Rate [Pulse Oximeter] 100 99 94 Respiratory Rate 14 15 16 Blood Pressure [Le ft Arm] Blood Pressure [Ri ght Arm] 116/84 118/81 128/84 Pulse Oximetry 92 94 98 Oxygen Delivery Me thod Room Air Room Air Room Air Oxygen Flow Rate 01/24/25 00:03 01/24/25 00:08 01/24/25 00:08 Temperature 97.9 F Pulse Rate Pulse Rate [Pulse Oximeter] 94 94 Respiratory Rate 16 16 16 Blood Pressure [Le ft Arm] 134/95 H Blood Pressure [Ri ght Arm] 128/84 Pulse Oximetry 98 98 Oxygen Delivery Me thod Room Air Room Air Oxygen Flow Rate 1 0 01/24/25 00:24 01/24/25 03:08 01/24/25 03:11 Temperature 97.6 F 97.6 F Pulse Rate 90 Pulse Rate [Pulse Oximeter] 96 96 Respiratory Rate 16 16 Blood Pressure [Le ft Arm] 134/95 H Blood Pressure [Ri ght Arm] 142/97 H 142/97 H Pulse Oximetry 97 97 Oxygen Delivery Me thod Room Air Room Air Oxygen Flow Rate 0 01/24/25 07:00 01/24/25 07:00 01/24/25 07:31 Temperature 96.9 F L Pulse Rate Pulse Rate [Pulse Oximeter] 98 93 Respiratory Rate 18 18 Blood Pressure [Le ft Arm] Blood Pressure [Ri ght Arm] 136/98 H Pulse Oximetry 97 97 Oxygen Delivery Me thod Room Air Room Air Oxygen Flow Rate 01/24/25 07:32 01/24/25 07:58 Temperature 96.9 F L Pulse Rate 100 Pulse Rate [Pulse Oximeter] 98 Respiratory Rate 18 Blood Pressure [Le ft Arm] Blood Pressure [Ri ght Arm] 136/98 H Pulse Oximetry 97 Oxygen Delivery Me thod Room Air Oxygen Flow Rate Documenting provider has reviewed patient's vital signs: yes DS: Data Data Completed and Pending Labs on day of discharge: Labs from last 24 hours 01/24/25 01/23/25 06:25 05:55 WBC 4.72 RBC 3.95 L Hgb 12.1 L Hct 35.3 L MCV 89 MCH 31 MCHC 34 RDW Coeff of Gary 16.1 H Plt Count 91 L Neut % (Auto) 65.8 Lymph % (Auto) 25.4 [place] % (Auto) 5.9 Eos % (Auto) 2.1 Baso % (Auto) 0.6 Neut # (Auto) 3.10 Lymph # (Auto) 1.20 [place] # (Auto) 0.30 Eos # (Auto) 0.10 Baso # (Auto) 0.03 Abs Immat Gran (auto) 0.01 Imm/Tot Granulo (auto) 0.2 D-Dimer Quant (PE/DVT) 0.39 Sodium 130 L Potassium 3.2 L Chloride 95 L Carbon Dioxide 26 Anion Gap 9 BUN 12 Creatinine 0.8 Estimated Creat Clear 73.65 Estimated GFR 98 Glucose 115 Lactate 1.0 Calcium 7.5 L Magnesium 1.7 Total Bilirubin 1.2 Direct Bilirubin 0.4 AST 50 H ALT 27 Alkaline Phosphatase 101 Total Protein 6.1 Albumin 3.0 L Preliminary micro results at discharge 01/22/25 21:26 Blood Culture - Preliminary Blood NO GROWTH AFTER 24 HOURS 01/22/25 21:26 Blood Culture - Preliminary Blood NO GROWTH AFTER 24 HOURS Discharge Plan Discharge Disposition: Home, Self-Care Date of Admission: 01/22/25 22:35 Attending Provider on Discharge: Ray Elliott Primary Care Provider: Provider,Not a Local Condition: Improved Anticipated Discharge Date/Time: 01/24/25 08:28 Discharge Medications: New calcium 26-vit D3-magnesium 15 167 mg calcium- 1.67 mcg-83 mg capsule 1 cap PO BID Qty: 60 0RF magnesium oxide 400 mg (241.3 mg magnesium) Tablet 400 mg PO DAILY Qty: 30 0RF multivitamin with folic acid [Thera] 400 mcg Tablet 1 tab PO DAILY Qty: 100 0RF Continued pantoprazole 40 mg tablet,delayed release (DR/EC) 40 mg PO DAILY flecainide 100 mg tablet 100 mg PO Q12H Eliquis 5 mg tablet 5 mg PO BID sildenafil 100 mg tablet 100 mg PO DAILY PRN Changed metoprolol succinate 25 mg tablet extended release 24 hr 25 mg PO BID Qty: 60 0RF Discontinued hydrochlorothiazide 25 mg tablet 25 mg PO DAILY Discharge Orders: Discharge Order (Routine); Ordered 01/24/25 Ordered By: Ray Elliott Patient Education: Multivitamins, Adult Formula (By mouth), Calcium/Vitamin D Supplement (By mouth), Magnesium Oxide (By mouth), A-fib (Atrial Fibrillation) (DC), Alcohol Withdrawal (DC) Additional Instructions: I have stopped your hydrochlorothiazide medication because your potassium and sodium are too low. Your blood tests should be rechecked in about 1 week to make sure that your potassium, sodium, magnesium levels are normal. I have increased your metoprolol to 1 whole tablet twice a day to help control your heart rate. You are having multiple health problems due to drinking alcohol. I urge you to stop drinking alcohol. This can be difficult and people often need help for this. There are many resources to assist. If you are interested in our assistance you can call our director social welfare Department. You can also talk to your primary care doctor about this. Activity Level: No Restrictions Discharge Diet: Regular Follow Up Appointments: [facility] [Outside] Referral Note: Make an appointment with your [facility] to get re checked in the next week. You should have blood tests including sodium, potassium, magnesium checked. You should also have them check your heart rate and rhythm and blood pressure. Martín Bucio MD [Staff Physician, Cardiology] Referral Note: See Dr. Bucio at the next available appointment at the clinic in [place]. Please call [phone] Saturday morning to schedule appointment. Hours are 8am-5pm. Provider,Not a Local [Primary Care Provider, Family Practice] Forms: [employer] Info Instructions
== END 2025-01-24 09:55 | disposition home or self-care (01) | DRG 897 ==
LOC: ED 22:35 → MEDSURG 22:37
PROVIDERS: Admitting Provider Family Medicine; Emergency Provider Emergency Medicine; Visit Provider Family Medicine
DX: F10.239 Alcohol dependence with withdrawal, unspecified (principal); E87.1 Hypo-osmolality and hyponatremia; I48.0 Paroxysmal atrial fibrillation; F10.29 Alcohol dependence with unspecified alcohol-induced disorder; K70.10 Alcoholic hepatitis without ascites; R09.02 Hypoxemia; R74.02 Elevation of levels of lactic acid dehydrogenase [LDH]; K70.0 Alcoholic fatty liver; D69.6 Thrombocytopenia, unspecified; E87.6 Hypokalemia; E83.42 Hypomagnesemia; D50.9 Iron deficiency anemia, unspecified; E66.811 Obesity, class 1; Z79.01 Long term (current) use of anticoagulants
CPT/HCPCS: 36415; 71046; 80048; 80053; 80076; 80143; 80179; 80306; 81001; 82077; 82728; 83605; 83690; 83735; 83880; 84295; 84443; 84484; 85025; 85379; 87040; 93005; 94761; 99285; A9153; A9270; J2543; J2560; J3360; J3475; J3480; J7030; J7050; J7120